=== PATIENT | female | born 1960 | race African-American/Black ===

== ENCOUNTER 2019-02-21 19:32 | Inpatient (IN) | payer OTHER, BC ==
--- NOTE | 2019-02-21 20:23 | PDOC ---
Attending Attestation - Resident Resident Name: Annette Matamoros - ED Attending Attestation I have performed the following: I have examined & evaluated the patient, The case was reviewed & discussed with the resident, I agree w/resident's findings & plan - HPI HPI: 02/21/19 21:15 see resident hpi - Physicial Exam PE: 02/21/19 21:15 agree with resident exam - Medical Decision Making 02/21/19 21:15 58 yo female with abd pain, vomiting and diarrhea plan for CT, IVF and likely admit due to co morbidities including tracheostomy status
[2019-02-21] MEDS ORDERED: ONDANSETRON *ODT* 4 MG TABLET SL ONE (20:35)
[2019-02-21] MEDS ORDERED: SODIUM CHLORIDE 0.9% 500 ML INFUS.BAG IV ONE (20:36)
[2019-02-21] MEDS ORDERED: FAMOTIDINE 20 MG/50 ML IVPB 20 MG/50 ML MG IVPB ONE ×2 (20:36→20:50)
--- NOTE | 2019-02-21 20:45 | PDOC ---
History of Present Illness - General Chief Complaint: Pain, Acute Stated Complaint: ABDOMINAL PAIN Time Seen by Provider: 02/21/19 20:19 - History of Present Illness Initial Comments: Deena Elizabeth is a 58yo woman with a PMH of HTN, HLD, NIDDM, s/p trach (reason unknown), ventral hernia who presents with 3 days of frequent vomiting, watery diarrhea, PO intolerance, and abdominal pain. Ms Elizabeth is unable to provide many details due to her trach, and her niece is at bedside to provide additional details. According to the eileenkarmen, who lives with Ms Elizabeth and is her primary caregiver, the pt first started having symptoms 2 or 3 days ago. The vomiting and diarrhea have worsened over the past few days, and the niece came home from work today to find the patient persistently vomiting and retching. Ms Elizabeth indicates that she has been unable to tolerate any food and few liquids over the past 2-3 days; she says that everything comes right back up. She also reports abdominal pain located directly over the site of her ventral hernia. She denies ever having abdominal surgery or a bowel obstruction in the past. She and her niece report that the hernia sometimes goes down in size, but it never goes away completely. Neither has noticed any redness or warmth over the hernia. Niether are aware of any fevers or chills at home. Past History - Past Medical History Allergies/Adverse Reactions: Allergies Allergy/AdvReac Type Severity Reaction Status Date / Time Penicillins Allergy Verified 02/21/19 20:11 Home Medications: Ambulatory Orders Clonidine HCl [Clonidine HCl ER] 0.1 mg PO BID 02/21/19 Lisinopril [Prinivil -] 40 mg PO DAILY 02/21/19 Metformin HCl [Metformin HCl ER] 500 mg PO AM 02/21/19 Metoclopramide HCl [Reglan -] 10 mg PO TID 02/21/19 Rosuvastatin Calcium [Crestor] 20 mg PO HS 02/21/19 COPD: No Diabetes: Yes HTN: Yes Hypercholesterolemia: Yes Other medical history: permanent trach collar - Suicide/Smoking/Psychosocial Hx Smoking History: Unknown if ever smoked Hx Alcohol Use: No Drug/Substance Use Hx: No Review of Systems - Review of Systems Comments:: Could not evaluate; pt minimally verbal due to trach *Physical Exam - Vital Signs Last Vital Signs Temp Pulse Resp BP Pulse Ox 98 F 93 H 20 135/70 94 L 02/21/19 19:55 02/21/19 19:55 02/21/19 19:55 02/21/19 19:55 02/21/19 19:55 - Physical Exam Comments: General: Morbidly obese, uncomfortable but in no acute distress HEENT: Atraumatic, PERRL, EOMI, MMM, trach patent and in place Cards: RRR, no murmur appreciated Pulm: Comfortable on room air, clear to auscultation bilaterally Abd: Soft, does not appear distended. Large ventral hernia to the right of midline; TTP over hernia. No erythema, warmth overlying hernia. Soft but not reducible Ext: Atraumatic. 1+ LE edema. Moves all extremities Skin: Normal color, no rashes or lesions Neuro: A&Ox3, CN grossly intact, motor/sensory grossly intact and symmetric Psych: Mood appropriate to situation ED Treatment Course - LABORATORY CBC & Chemistry Diagram: 02/21/19 21:30 02/21/19 21:30 - RADIOLOGY Radiology Studies Ordered: Category Date Time Status CHEST X-RAY PORTABLE* [RAD] Stat Radiology 02/21/19 20:35 Ordered Medical Decision Making - Medical Decision Making 02/21/19 20:36 Deena Elizabeth is a 58yo woman with a PMH of HTN, HLD, NIDDM, s/p trach (reason unknown), ventral hernia who presents with 3 days of frequent vomiting, watery diarrhea, PO intolerance, and abdominal pain located at her ventral hernia. - Vomiting, diarrhea suggestive of gastroenteritis (viral v bacterial, possibly food poisoning). Less likely SBO as hernia is soft but due to body habitus cannot fully evaluate. Cannot localize abdominal pain; Ddx also includes cholecystitis, pancreatitis, appendicitis, or diverticulitis though less likely - CBC, CMP, lipase, coags, T&S - CT abd/pelvis with contrast - Zofran, famotidine, IVF 02/21/19 22:04 - IV acetaminophen ordered for abdominal pain - Pt signed out to Dr Hagen for the remainder of her ED care. Discussed with Dr Hagen and Dr Arnaud Matamoros PGY2 *DC/Admit/Observation/Transfer Diagnosis at time of Disposition: Vomiting and diarrhea - Referrals Referrals: Светлана Valadez [Primary Care Provider] - - Patient Instructions - Post Discharge Activity
[2019-02-21] MEDS ORDERED: ONDANSETRON *ODT* 4 MG TABLET ONE (20:50)
[2019-02-21 21:46] LABS: BASO % 0.3 % (0-2.0); EOS % 1.2 % (0-4.5); HEMATOCRIT 42.5 % (32.4-45.2); HEMOGLOBIN 13.8 GM/dL (10.7-15.3); LYMPH % 11.5 % (8-40); MCH 27.2 pg (25.7-33.7); MCHC 32.5 g/dl (32.0-36.0); MEAN CELL VOLUME 83.6 fl (80-96); MEAN PLT VOLUME 8.6 fl (7.5-11.1); PLATELET COUNT 239 K/MM3 (134-434); RBC 5.08 M/mm3 (3.60-5.2); RDW 14.9 % (11.6-15.6); WHITE BLOOD COUNT 9.4 K/mm3 (4.0-10.0)
[2019-02-21] MEDS ORDERED: ACETAMINOPHEN 1000 MG/100 ML VIAL (NON FORMULARY) IVPB ONE (21:53)
[2019-02-21 22:01] LABS: MAGNESIUM 2.1 mg/dL (1.8-2.4)
[2019-02-21 22:06] LABS: ALBUMIN 3.8 g/dl (3.4-5.0); BILIRUBIN,TOTAL 0.4 mg/dL (0.2-1); CALCIUM 9.6 mg/dL (8.5-10.1); CREATININE 1.5 mg/dL (0.55-1.3); PHOSPHOROUS 3.1 mg/dL (2.5-4.9); POTASSIUM 3.6 mmol/L (3.5-5.1); TOT PROT 8.3 g/dl (6.4-8.2)
[2019-02-21 22:20] LABS: INR 0.99 (0.83-1.09); PROTHROMBIN TIME (PATIENT) 11.7 SEC (9.7-13.0)
[2019-02-21] MEDS ORDERED: ACETAMINOPHEN INJECTION 100 ML IVPB ONE (22:21)
--- NOTE | 2019-02-22 01:05 | PDOC ---
*Physical Exam - Vital Signs Last Vital Signs Temp Pulse Resp BP Pulse Ox 98 F 93 H 20 135/70 94 L 02/21/19 19:55 02/21/19 19:55 02/21/19 19:55 02/21/19 19:55 02/21/19 19:55 ED Treatment Course - LABORATORY CBC & Chemistry Diagram: 02/21/19 21:30 02/21/19 21:30 - ADDITIONAL ORDERS Additional order review: Laboratory Results 02/21/19 02/21/19 02/21/19 21:30 21:30 21:30 PT with INR 11.70 INR 0.99 PTT (Actin FS) 29.0 Sodium Potassium Chloride Carbon Dioxide Anion Gap BUN Creatinine Est GFR (CKD-EPI)AfAm Est GFR (CKD-EPI)NonAf Random Glucose Calcium Phosphorus Magnesium 2.1 Total Bilirubin AST ALT Alkaline Phosphatase Total Protein Albumin Lipase 59 L Blood Type B POSITIVE Antibody Screen Negative 02/21/19 21:30 PT with INR INR PTT (Actin FS) Sodium 142 Potassium 3.6 Chloride 104 Carbon Dioxide 28 Anion Gap 10 BUN 31.0 H Creatinine 1.5 H Est GFR (CKD-EPI)AfAm 44.36 Est GFR (CKD-EPI)NonAf 38.27 Random Glucose 158 H Calcium 9.6 Phosphorus 3.1 Magnesium Total Bilirubin 0.4 AST 25 ALT 22 Alkaline Phosphatase 98 Total Protein 8.3 H Albumin 3.8 Lipase Blood Type Antibody Screen 02/21/19 21:30 RBC 5.08 MCV 83.6 MCHC 32.5 RDW 14.9 MPV 8.6 Neutrophils % 82.0 Lymphocytes % 11.5 Monocytes % 5.0 Eosinophils % 1.2 Basophils % 0.3 - RADIOLOGY Radiology Studies Ordered: Category Date Time Status ABDOMEN & PELVIS CT W/O CONTR [CT] Stat CT Scan 02/22/19 00:01 Taken - Medications Given in the ED: ED Medications Discontinued Medications Generic Name Dose Route Start Last Admin Trade Name Freq PRN Reason Stop Dose Admin Acetaminophen 1,000 mg 02/21/19 21:53 02/21/19 22:32 Ofirmev Injection - IVPB 02/21/19 21:54 1,000 mg ONCE ONE Administration Famotidine/Sodium Chloride 20 mg in 50 mls @ 100 mls/hr 02/21/19 20:36 21:40 Pepcid 20 Mg Premixed Ivpb - IVPB 02/21/19 21:05 100 mls/hr ONCE ONE Administration Ondansetron HCl 4 mg 02/21/19 20:35 02/21/19 21:11 Zofran Odt - SL 02/21/19 20:36 4 mg ONCE ONE Administration Sodium Chloride 1,000 ml 02/21/19 20:36 02/21/19 21:40 Normal Saline - IV 02/21/19 20:37 1,000 ml ONCE ONE Administration *DC/Admit/Observation/Transfer Diagnosis at time of Disposition: Vomiting and diarrhea - Referrals Referrals: Светлана Valadez [Primary Care Provider] - - Patient Instructions - Post Discharge Activity
--- NOTE | 2019-02-22 02:26 | HP ---
CHIEF COMPLAINT: Abdominal pain associated with vomiting and diarrhea for the past 3 days. PCP: Светлана Llanos HISTORY OF PRESENT ILLNESS: The patient is a 58 year old female with PMH significant for HENRIQUE (s/p tracheostomy), HTN, HLD, DM, and ventral hernia. She presented to the ER with complaints of abdominal pain associated with vomiting and diarrhea for the past 3 days. The abdominal pain began over the site of her hernia in her left lower quadrant. It was sudden in onset, rated 10/10 in intensity, sharp in nature, non -radiating, and without any aggravating or relieving factors. The pain is associated with nausea, vomiting, and diarrhea. She had 2 episodes of vomiting 2 days ago, and has been 'dry heaving' since then. She also states that she has not had any food for the past 2 days. She is not sure how many episodes of diarrhea she has had, but states that she has had over 15 episodes overs the past few days. She describes it as brown, watery, with no blood, and not associated with any rectal pain. She has had 3 episodes today. She complains of an associated headache limited to her forehead, which began in the ER. She does not complain of any exposure to sick contacts or associated symptoms of fevers, chills, dizziness, light headedness, shortness of breath, chest pain , palpitations, constipation, dysuria, urinary urgency, or hematuria. ER course was notable for: (1) CT AP Prelim report: Dilated and fluid filled small bowel loops, incarcerated supraumbilical hernia (2) Famotidine, Ofiramev, Zofran (3) Afebrile, WBC 9.4 Recent Travel: None PAST MEDICAL HISTORY: HENRIQUE (s/p tracheostomy), HTN, HLD, DM, and ventral hernia PAST SURGICAL HISTORY: Hernia and goiter removal, unsure when Social History: Smoking: None Alcohol: None Drugs: None Family History: No history of CA, HTN, CAD, CVA Allergies Penicillins Allergy (Verified 02/21/19 20:11) HOME MEDICATIONS: Home Medications Medication Instructions Recorded Clonidine HCl [Clonidine HCl ER] 0.1 mg PO BID 02/21/19 Lisinopril [Prinivil -] 40 mg PO DAILY 02/21/19 Metformin HCl [Metformin HCl ER] 500 mg PO AM 02/21/19 Metoclopramide HCl [Reglan -] 10 mg PO TID 02/21/19 Rosuvastatin Calcium [Crestor] 20 mg PO HS 02/21/19 REVIEW OF SYSTEMS CONSTITUTIONAL: Absent: fever, chills, diaphoresis, generalized weakness, malaise, loss of appetite, weight change HEENT: Absent: rhinorrhea, nasal congestion, throat pain, throat swelling, difficulty swallowing, mouth swelling, ear pain, eye pain, visual changes CARDIOVASCULAR: Absent: chest pain, syncope, palpitations, irregular heart rate, lightheadedness , peripheral edema RESPIRATORY: Absent: cough, shortness of breath, dyspnea with exertion, orthopnea, wheezing, stridor, hemoptysis GASTROINTESTINAL:abdominal pain, nausea, vomiting, diarrhea Absent: abdominal pain, abdominal distension, nausea, vomiting, diarrhea, constipation, melena, hematochezia GENITOURINARY: Absent: dysuria, frequency, urgency, hesitancy, hematuria, flank pain, genital pain MUSCULOSKELETAL: Absent: myalgia, arthralgia, joint swelling, back pain, neck pain SKIN: Absent: rash, itching, pallor HEMATOLOGIC/IMMUNOLOGIC: Absent: easy bleeding, easy bruising, lymphadenopathy, frequent infections ENDOCRINE: Absent: unexplained weight gain, unexplained weight loss, heat intolerance, cold intolerance NEUROLOGIC: Absent: headache, focal weakness or paresthesias, dizziness, unsteady gait, seizure, mental status changes, bladder or bowel incontinence PSYCHIATRIC: Absent: anxiety, depression, suicidal or homicidal ideation, hallucinations. PHYSICAL EXAMINATION Vital Signs - 24 hr 02/21/19 19:55 Temperature 98 F Pulse Rate 93 H Respiratory 20 Rate Blood Pressure 135/70 O2 Sat by Pulse 94 L Oximetry (%) GENERAL: Awake, alert, and fully oriented, complaining of pain HEAD: Normal with no signs of trauma EYES: Pupils equal, round and reactive to light, extraocular movements intact, sclera anicteric, conjunctiva clear. No lid lag. EARS, NOSE, THROAT: Ears normal, nares patent, oropharynx clear without exudates , tracheostomy tube present NECK: Normal range of motion, supple without lymphadenopathy, JVD, or masses. LUNGS: Breath sounds equal, clear to auscultation bilaterally. No wheezes, and no crackles. No accessory muscle use. HEART: Regular rate and rhythm, normal S1 and S2 without murmur, rub or gallop. ABDOMEN: Soft, supraumbilical irreducible hernia present, supraumbilical tenderness, normoavtive bowel sounds MUSCULOSKELETAL: limited rnage of motion in joints due to body habitus UPPER EXTREMITIES: 2+ pulses, warm, well-perfused. No cyanosis. No clubbing. No peripheral edema. LOWER EXTREMITIES: 2+ pulses, warm, well-perfused. No calf tenderness. No peripheral edema. NEUROLOGICAL: Cranial nerves II-XII intact. Normal speech. Normal gait. PSYCHIATRIC: Cooperative. Good eye contact. Appropriate mood and affect. SKIN: Warm, dry, normal turgor, no rashes or lesions noted, normal capillary refill. Laboratory Results - last 24 hr 02/21/19 02/21/19 02/21/19 21:30 21:30 21:30 WBC 9.4 RBC 5.08 Hgb 13.8 Hct 42.5 MCV 83.6 MCH 27.2 MCHC 32.5 RDW 14.9 Plt Count 239 MPV 8.6 Absolute Neuts (auto) 7.7 Neutrophils % 82.0 Lymphocytes % 11.5 Monocytes % 5.0 Eosinophils % 1.2 Basophils % 0.3 Nucleated RBC % 0 PT with INR INR PTT (Actin FS) Sodium 142 Potassium 3.6 Chloride 104 Carbon Dioxide 28 Anion Gap 10 BUN 31.0 H Creatinine 1.5 H Est GFR (CKD-EPI)AfAm 44.36 Est GFR (CKD-EPI)NonAf 38.27 Random Glucose 158 H Calcium 9.6 Phosphorus 3.1 Magnesium 2.1 Total Bilirubin 0.4 AST 25 ALT 22 Alkaline Phosphatase 98 Total Protein 8.3 H Albumin 3.8 Lipase 59 L Blood Type Antibody Screen 02/21/19 02/21/19 21:30 21:30 WBC RBC Hgb Hct MCV MCH MCHC RDW Plt Count MPV Absolute Neuts (auto) Neutrophils % Lymphocytes % Monocytes % Eosinophils % Basophils % Nucleated RBC % PT with INR 11.70 INR 0.99 PTT (Actin FS) 29.0 Sodium Potassium Chloride Carbon Dioxide Anion Gap BUN Creatinine Est GFR (CKD-EPI)AfAm Est GFR (CKD-EPI)NonAf Random Glucose Calcium Phosphorus Magnesium Total Bilirubin AST ALT Alkaline Phosphatase Total Protein Albumin Lipase Blood Type B POSITIVE Antibody Screen Negative ASSESSMENT/PLAN: The patient is a 58 year old female with PMH significant for HENRIQUE (s/p tracheostomy), HTN, HLD, DM, and ventral hernia. She presented to the ER with complaints of abdominal pain associated with vomiting and diarrhea for the past 3 days. Was admitted for suspected incarcerated hernia. # Incarceration of supraumbilical hernia - CT AP Prelim report: Dilated and fluid filled small bowel loops, incarcerated supraumbilical hernia - Morphine IV 2mg Q4H for pain - Zofran iv for nausea - Surgery consulted, case discussed with Dr. Smith - Lactic Acid normal (may be elevated in necrosis due to strangulation) #MARY - BUN:Cr 31/1.5 - Renal USG ordered - N/S administered # FEN - NPO pending surgical consult - N/S administered #DVT PE - SCDs Visit type - Emergency Visit Emergency Visit: Yes ED Registration Date: 02/22/19 Care time: The patient presented to the Emergency Department on the above date and was hospitalized for further evaluation of their emergent condition. - New Patient This patient is new to me today: Yes Date on this admission: 02/26/19 - Critical Care Critical Care patient: No ATTENDING PHYSICIAN STATEMENT I saw and evaluated the patient. I reviewed the resident's note and discussed the case with the resident. I agree with the resident's findings and plan as documented. SUBJECTIVE: OBJECTIVE: ASSESSMENT AND PLAN:
[2019-02-22] MEDS ORDERED: LACTATED RINGERS SOLUTION 1,000 ML IV SCH (02:30)
[2019-02-22] MEDS ORDERED: ACETAMINOPHEN 1000 MG/100 ML VIAL (NON FORMULARY) IVPB PRN (02:36)
[2019-02-22] MEDS ORDERED: ACETAMINOPHEN INJECTION 100 ML IVPB ONE (02:44)
--- NOTE | 2019-02-22 03:09 | PN ---
Teaching Attending Note Name of Resident: Maico Arnett ATTENDING PHYSICIAN STATEMENT I saw and evaluated the patient. Chart, data, imaging reviewed. I reviewed the resident's note and discussed the case with the resident. I agree with the resident's findings and plan as documented. SUBJECTIVE: 58 year old female with PMH significant for HENRIQUE (s/p tracheostomy), HTN, HLD, DM , and ventral hernia s/p surgery - does not remember when surgery was. C/o 3 days of diarrhea up to 15 episodes, brownish, watery stools. some abdominal pain around ventral hernia site, and nausea. Denied significant vomiting. No sick contacts or travel. OBJECTIVE: Last Vital Signs Temp Pulse Resp BP Pulse Ox 98.2 F 93 H 20 104/63 96 02/22/19 02:30 02/22/19 02:30 02/22/19 02:30 02/22/19 02:30 02/22/19 02:30 general -nad, appears uncomfortable, morbidly obese heent -at, nc cv-s1+s2+rrr chest- clear b/l abd -ventral hernia right half of abdomen, Abnormal Lab Results 02/21/19 02/21/19 21:30 21:30 BUN 31.0 H Creatinine 1.5 H Random Glucose 158 H Total Protein 8.3 H [address] of abd/pelvis - supraumbilical hernia, - contains knuckle of transverse colon , obstructive pattern with dilation of small bowel ASSESSMENT AND PLAN: SBO from ventral hernia -admit to med/surg -npo -loya control-morphine IV -correct electrolyte abnormalities -IV fluid hydration -zofran iv for nausea -surgery consult -SCDs - dvt ppx
[2019-02-22] MEDS ORDERED: MORPHINE SULFATE 2 MG/ML VIAL IVPUSH PRN (03:25)
[2019-02-22] MEDS: INSULIN SLIDING SCALE (NOVOLOG) 1 VIAL SQ SCH ×3 (06:27→18:38)
[2019-02-22] MEDS ORDERED: MORPHINE SULFATE 2 MG/ML VIAL ONE (06:59)
[2019-02-22 07:12] LABS: PROTHROMBIN TIME (PATIENT) 11.8 SEC (9.7-13.0)
[2019-02-22 07:13] LABS: ACTIVATED PTT 33.6 SECONDS (25.2-36.5); BASO % 0.3 % (0-2.0); EOS % 1.5 % (0-4.5); HEMATOCRIT 39.8 % (32.4-45.2); LYMPH % 11.9 % (8-40); MCH 27.6 pg (25.7-33.7); MCHC 32.6 g/dl (32.0-36.0); MEAN CELL VOLUME 84.5 fl (80-96); MEAN PLT VOLUME 8.6 fl (7.5-11.1); MONO % 5.6 % (3.8-10.2); NEUT % 80.7 % (42.8-82.8); PLATELET COUNT 208 K/MM3 (134-434); RBC 4.71 M/mm3 (3.60-5.2); RDW 15.1 % (11.6-15.6); WHITE BLOOD COUNT 7.4 K/mm3 (4.0-10.0)
[2019-02-22 07:31] LABS: BLOOD UREA NITROGEN 37.2 mg/dL (7-18); CALCIUM 8.8 mg/dL (8.5-10.1); CREATININE 1.4 mg/dL (0.55-1.3); PHOSPHOROUS 4.3 mg/dL (2.5-4.9); POTASSIUM 3.7 mmol/L (3.5-5.1)
--- NOTE | 2019-02-22 11:39 | PN ---
Teaching Attending Note Name of Resident: Graciela Becerra ATTENDING PHYSICIAN STATEMENT I saw and evaluated the patient. I reviewed the resident's note and discussed the case with the resident. I agree with the resident's findings and plan as documented. SUBJECTIVE:pain improved with pain medication. +belching. denies Cp, SOB, fever , chills, N/V/C/D OBJECTIVE: Last Vital Signs Temp Pulse Resp BP Pulse Ox 98.1 F 95 H 22 H 126/85 98 02/22/19 08:25 02/22/19 08:25 02/22/19 08:25 02/22/19 08:25 02/22/19 08:25 General NAD CV S1 S2 RRR no murmur/rub/gallop Lungs CTA B/L no wheezing/rales/rhonchi Abdomen soft mid-epigastric tenderness with hernia protrusion, +distended no BS appreciated ASSESSMENT AND PLAN: 58yo F wtih PMH HENRIQUE s/p trach, HTN, DM, hypothyroid, dyslipidemia and previous hernia repair presented to the ER wtih abdominal pain and diarrhea x3 days and found to have ventral hernia with transverse colon causing partial bowel obstruction 1. Ventral hernia with partial bowel obstruction- clinically seems improved as controlled with medications. lactic acid normal. will need correction of hernia if unable to be reduced, and likely wont be able to. cont NPO, IVF, pain and nausea control. surgery recommendations 2. MARY- due to dehydration. stable. renal u/s noted. states she having good UOP. avoid nephrotoxic agents 3. non-obstructing nephrolithasis- no hydro seen. pain not likely due to renal stone. will cont with IVF. can start flomax once tolerating diet to aid in passage 4. HENRIQUE s/p trach 5. HTN- controlled. hold oral agents for now. can re-start as needed 6. DM- A1c pending. hold oral agents. cont BGM and iss 7. Hypothyroid- convert to IV while not able to take po 8. DVT ppx- SCD, plan for hep sq once surgery is not planned 9. spoke with daughter present at bedside. all questions answered
--- NOTE | 2019-02-22 12:24 | EKG ---
Test Reason : Blood Pressure : / mmHG Vent. Rate : 092 BPM Atrial Rate : 092 BPM P-R Int : 138 ms QRS Dur : 104 ms QT Int : 388 ms P-R-T Axes : 061 070 059 degrees QTc Int : 479 ms POOR DATA QUALITY, INTERPRETATION MAY BE ADVERSELY AFFECTED NORMAL SINUS RHYTHM NORMAL ECG NO PREVIOUS ECGS AVAILABLE Confirmed by ROSALIA VAIL MD ([id number]) on 02/22/2019 12:23:52 PM Referred By: Confirmed By:ROSALIA VAIL MD
[2019-02-22] MEDS ORDERED: PNEUMOC 13-VAL CONJ-DIP CRM/PF 0.5 ML DISP.SYRIN IM ONE (12:25)
[2019-02-22 12:45] VITALS: BMI 43.9
[2019-02-22] MEDS ORDERED: PNEUMOCOCCAL 23 VACCINE 0.5 ML VIAL IM ONE (13:00)
--- NOTE | 2019-02-22 13:22 | CONSULT ---
- Consultation REQUESTING PROVIDER: CONSULT REQUEST: We have been asked to surgically evaluate this patient for incarcerated hernia. PCP:Dejah Hawkins HISTORY OF PRESENT ILLNESS: The patient is a 58 yo female who a PMHX of HTN, Trach for respiratory failure with a history of sleep apnea. The patient developed vomiting and diarrhea several days ago and then noted abdominal pain. She came to the ER for evaluation and was found to have an incarcerated hernia containing colon with a SBO. She states that she has had the hernia for years and has pain from time to time. Typically it protrudes and on occasion she does have an increase and size and pain to the area. The patient denies any CP, SOB, fever or chills. Pt refused NGT placement. PMHx: HTN, sleep apnea, DM PSHx: c section/ hernia with repair years ago, Trach-7 years ago following a respiratory failure incident Home Medications Medication Instructions Recorded Clonidine HCl [Clonidine HCl ER] 0.1 mg PO BID 02/21/19 Lisinopril [Prinivil -] 40 mg PO DAILY 02/21/19 Metformin HCl [Metformin HCl ER] 500 mg PO BIDAC 02/21/19 Metoclopramide HCl [Reglan -] 10 mg PO TID 02/21/19 Rosuvastatin Calcium [Crestor] 20 mg PO HS 02/21/19 Levothyroxine Sodium [Synthroid] 175 mcg PO ACBK 02/22/19 Allergies Allergy/AdvReac Type Severity Reaction Status Date / Time Penicillins Allergy Verified 02/21/19 20:11 REVIEW OF SYSTEMS: CONSTITUTIONAL: Absent: fever, chills CARDIOVASCULAR: Absent: chest pain, syncope, palpitations RESPIRATORY: Absent: cough, shortness of breath GASTROINTESTINAL: Absent: abdominal pain, abdominal distension, nausea, vomiting, diarrhea GENITOURINARY: Absent: dysuria, hematuria HEMATOLOGIC/IMMUNOLOGIC: Absent: easy bleeding, easy bruising NEUROLOGIC: Absent: headache, seizure PHYSICAL EXAM: GENERAL: Awake, alert, and fully oriented, in no acute distress. NECK: LUNGS: Clear to auscultation bilat anteriorly. HEART: Regular rate and rhythm. ABDOMEN: Soft, large non-reducible, tender supraumbilical hernia. Healed vertical midline scar to mid abdomen. No rebound/guarding to remaining abdomen Vital Signs Temperature 97.8 F 02/22/19 12:00 Pulse Rate 78 02/22/19 12:00 Respiratory Rate 20 02/22/19 12:00 Blood Pressure 141/79 02/22/19 12:00 O2 Sat by Pulse Oximetry (%) 98 02/22/19 08:25 Lab Results WBC 7.4 K/mm3 (4.0-10.0) 02/22/19 06:34 RBC 4.71 M/mm3 (3.60-5.2) 02/22/19 06:34 Hgb 13.0 GM/dL (10.7-15.3) 02/22/19 06:34 Hct 39.8 % (32.4-45.2) 02/22/19 06:34 MCV 84.5 fl (80-96) 02/22/19 06:34 MCHC 32.6 g/dl (32.0-36.0) 02/22/19 06:34 RDW 15.1 % (11.6-15.6) 02/22/19 06:34 Plt Count 208 K/MM3 (134-434) 02/22/19 06:34 Sodium 144 mmol/L (136-145) 02/22/19 06:34 Potassium 3.7 mmol/L (3.5-5.1) 02/22/19 06:34 Chloride 106 mmol/L (98-107) 02/22/19 06:34 Carbon Dioxide 26 mmol/L (21-32) 02/22/19 06:34 Anion Gap 12 MMOL/L (8-16) 02/22/19 06:34 BUN 37.2 mg/dL (7-18) H 02/22/19 06:34 Creatinine 1.4 mg/dL (0.55-1.3) H 02/22/19 06:34 Random Glucose 150 mg/dL (74-106) H 02/22/19 06:34 Calcium 8.8 mg/dL (8.5-10.1) 02/22/19 06:34 Blood Type B POSITIVE 02/21/19 21:30 Antibody Screen Negative 02/21/19 21:30 INR 1.00 (0.83-1.09) 02/22/19 06:34 CT SCAN: supraumbilical ventral hernia containing a portion of the transverse colon. The hernia causes a partial bowel obstruction with distended fluid- filled loops of right colon/small bowel and stomach. US: 6mm nonobstructing left renal stone A/p: 58 yo female with incarcertaed colon in ventral hernia D/w Dr. Smith and will plan for the OR today for emergent incarcerated hernia repair/ex lap. The patient has a chronic hernia which now has become tender, symptomatic. The hernia remains non-reducible with palpable/tender mass on examination. Attempted to place ngt prior to OR but the patient refused. She has agreed to surgery today with Dr. Simth and understands that this an emergent surgery versus elective repair because of the obstructive symptoms/presentation. The pt remains NPO. IV hydration while NPO/ BUN/Cret slightly elevated( unsure of baseline) Insulin sliding scale while NPO/ aye-operative glucose control good. BGM-119 DVT with heparin SQ/post-op.
[2019-02-22] MEDS ORDERED: MIDAZOLAM HCL 2 MG/2 ML SINGLE DOSE VIAL ONE (14:28)
[2019-02-22] MEDS ORDERED: fentaNYL CITRATE 250 MCG/5 ML VIAL ONE (14:29)
[2019-02-22] MEDS ORDERED: PROPOFOL 20 ML ONE (14:29)
[2019-02-22] MEDS ORDERED: SUCCINYLCHOLINE CHLORIDE 200 MG/10 ML SYRINGE ONE (14:29)
[2019-02-22] MEDS ORDERED: ROCURONIUM BROMIDE 50 MG/5 ML SYRINGE ONE (14:29)
--- NOTE | 2019-02-22 15:07 | CONS ---
DATE OF CONSULTATION: 02/22/2019 REASON FOR CONSULTATION: Incarcerated, recurrent ventral hernia; large-bowel obstruction. This is an emergency room consultation. BRIEF HISTORY: This is a 58-year-old female who several years ago had a ventral hernia repair, she believes, with mesh. Recently, she developed abdominal pain with nausea, vomiting, and diarrhea. At that point, her hernia, which had been recurrent and symptomatic, became more painful and stuck. She came in to the [facility] Emergency Room. There, she was noted to have a large, nonreducible hernia. She had a CAT scan of her abdomen and pelvis which showed that the hernia had a loop of transverse colon within it. That was the source of a large-bowel obstruction. There was also backup into the small bowel, and she was noted to have a dilated stomach as well. The patient was admitted to the hospital. She refused nasogastric tube decompression. After multiple attempts, the hernia was unable to be reduced, and request was made for surgical evaluation. PAST MEDICAL HISTORY: Significant for morbid obesity, for sleep apnea, hypertension, and diabetes. PAST SURGICAL HISTORY: Includes a permanent tracheostomy which was placed for her sleep apnea. She also has the ventral hernia as stated in the HPI. HOME MEDICATIONS: Include clonidine, lisinopril, metformin, Reglan, and Crestor. ALLERGIES: PENICILLIN. FAMILY HISTORY: Noncontributory. SOCIAL HISTORY: Negative for alcohol or tobacco. REVIEW OF SYSTEMS: General: Admits to fatigue. Cardiac: Denies chest pain. Respiratory: Admits to a chronic cough. Gastrointestinal: As in HPI. Admits to some diarrhea. Genitourinary: Denies dysuria. Musculoskeletal: Denies joint pain. Psychiatric: Denies anxiety, depression, hearing voices. PHYSICAL EXAMINATION: General: This is a morbidly obese, 58-year-old female in no distress. HEENT: Her head is normocephalic. Neck: She has a tracheostomy that appears permanent. Abdomen: Soft. She has a large hernia that is only partially reducible. There are no overlying skin changes. There is mild tenderness at location. The hernia is directly over a midline scar going above her umbilicus, approximately 6 inches in diameter. Her lower abdomen is soft and nontender. Extremities: Trace edema. LABORATORY DATA: Her white blood cell count is normal. ASSESSMENT: This is a 58-year-old female who presents with abdominal pain, nausea, vomiting, diarrhea; suspect a chronically-incarcerated, recurrent ventral hernia, now developed acute large-bowel obstruction. She has been unable to have this hernia reduced. Her symptoms have not significantly improved, and she is refusing nasogastric tube decompression. At this point, I have offered the patient repair of this hernia, and she is agreeable. Since there is an acutely-incarcerated loop of colon that is likely chronically present, there is a good chance that there will be bacterial translocation. Furthermore, she has an odor of poor hygiene from fat folds. All of this would lead to the possibility of mesh contamination more than I find acceptable. Therefore, we will likely just do a primary repair. It is possible I may also use a dissolvable mesh depending on the anatomy. Patient understands that this repair is unlikely permanent, that she will likely have a recurrence, but that this will solve the acute problem, and in the future, if the hernia recurs, it may not be as symptomatic. Unfortunately, we were unable to reduce this; otherwise, she could have considered a component separation hernia repair with mesh. At this point, patient is agreeable, and we will proceed with surgery. She assumes the risk of recurrence. She assumes the risk of injury to the colon. She may require a partial colectomy with ostomy depending on the condition of her colon. She also understands the risk of bleeding, infection, plus a multitude of medical risks including, but not limited to, cardiac, neurologic, pulmonary, and vascular complications, even . Patient is agreeable for surgery. We will give her a dose of meropenem prophylaxis and move in the direction of surgery. The patient was seen earlier in the day by JOSE C Portillo, and plan was coordinated between us under my direction. Georgie was unable to reduce the hernia, as was I, and the patient refused a nasogastric tube. Also note that the computers are currently unusable because of chronic overlock operator errors, and therefore, I am unable to put in a computer note at this time. DO DOMINIQUE HAYNES/[id number]
--- NOTE | 2019-02-22 15:34 | OP ---
DATE OF OPERATION: 02/22/2019 PREOPERATIVE DIAGNOSIS: Incarcerated complex ventral hernia. POSTOPERATIVE DIAGNOSIS: Incarcerated complex ventral hernia. PROCEDURE: Reduction of complex incarcerated ventral hernia under anesthesia. SURGEON: Jonatan Smith DO WAREHOUSE ASSISTANT: JOSE C Daley ANESTHESIOLOGIST: JESI Diaz (general) BRIEF HISTORY: This is a 58-year-old female who had a chronic incarcerated ventral hernia that became acutely incarcerated, causing a large-bowel obstruction. She presented to the operating room with plans for repair of this hernia as it had been unable to be reduced. The plan was for a primary repair. The patient has a permanent tracheostomy, and the anesthesia team initially intubated her utilizing a pediatric endotracheal tube through the trachea. After successfully doing this , the hernia was inspected, and it was able to be mostly reduced. At this point, while preparing to prep and drape the patient, the anesthesia team noted that the small endotracheal tube was not sufficient to provide enough oxygenation. At this point, the decision was made to wake her up and to have her evaluated by ENT and to cancel the planned hernia repair. The patient then had a large liquid bowel movement on the table. At this point, it was felt that the reduction of the hernia with the aid of anesthesia was successful. She still has a chronic incarceration to it, but I doubt that she is still obstructed of her colon. At this point, we will plan to observe her. If she remains well, we will not proceed with surgery. If, however, she still appears to have signs of obstruction, we will need to have her tracheostomy changed out by ENT, followed by the hernia repair. Further operative details include no blood loss, no drains, no specimen, and disposition to the recovery room. JONATAN SMITH DO [id number] MTDD
[2019-02-22] MEDS: LACTATED RINGERS SOLUTION 1,000 ML IV SCH (16:15)
--- NOTE | 2019-02-22 21:12 | PN ---
Physical Exam: SUBJECTIVE: Patient seen and examined. She reports right side abdominal pain. She denies n/v, SOB, or wheezing. OBJECTIVE: Vital Signs Period Temp Pulse Resp BP Sys/Leggett Pulse Ox Last 24 Hr 97.5 F-98.2 F 77-95 20-22 104-141/63-85 86-99 GENERAL: The patient is awake, alert, and fully oriented, in no acute distress. HEAD: Normal with no signs of trauma. EYES: PERRL, extraocular movements intact, sclera anicteric, conjunctiva clear. No ptosis. ENT: Ears normal, nares patent, moist mucous membranes. NECK: Trachea midline, tracheostomy tube in place, limited range of motion, supple. LUNGS: Breath sounds equal, clear to auscultation bilaterally, no wheezes HEART: Regular rate and rhythm, S1, S2 without murmur, rub or gallop. ABDOMEN: Obese. Generalized tenderness to palpation, especially right side. Large ventral hernia present. No discoloration. hypoactive bowel sounds, no guarding EXTREMITIES: 2+ pulses, warm, well-perfused, no edema. NEUROLOGICAL: Cranial nerves II through XII grossly intact. Normal speech, gait not observed. PSYCH: Normal mood, normal affect. SKIN: Warm, dry, normal turgor, no rashes or lesions noted Laboratory Results - last 24 hr 02/21/19 02/21/19 02/21/19 06:34 21:30 21:30 WBC 9.4 RBC 5.08 Hgb 13.8 Hct 42.5 MCV 83.6 MCH 27.2 MCHC 32.5 RDW 14.9 Plt Count 239 MPV 8.6 Absolute Neuts (auto) 7.7 Neutrophils % 82.0 Lymphocytes % 11.5 Monocytes % 5.0 Eosinophils % 1.2 Basophils % 0.3 Nucleated RBC % 0 PT with INR INR PTT (Actin FS) Sodium 142 Potassium 3.6 Chloride 104 Carbon Dioxide 28 Anion Gap 10 BUN 31.0 H Creatinine 1.5 H Est GFR (CKD-EPI)AfAm 44.36 Est GFR (CKD-EPI)NonAf 38.27 POC Glucometer Random Glucose 158 H Hemoglobin A1c % Lactic Acid Calcium 9.6 Phosphorus 3.1 Magnesium Total Bilirubin 0.4 AST 25 ALT 22 Alkaline Phosphatase 98 Total Protein 8.3 H Albumin 3.8 Lipase Blood Type B POSITIVE Antibody Screen 02/21/19 02/21/19 02/21/19 21:30 21:30 21:30 WBC RBC Hgb Hct MCV MCH MCHC RDW Plt Count MPV Absolute Neuts (auto) Neutrophils % Lymphocytes % Monocytes % Eosinophils % Basophils % Nucleated RBC % PT with INR 11.70 INR 0.99 PTT (Actin FS) 29.0 Sodium Potassium Chloride Carbon Dioxide Anion Gap BUN Creatinine Est GFR (CKD-EPI)AfAm Est GFR (CKD-EPI)NonAf POC Glucometer Random Glucose Hemoglobin A1c % Lactic Acid Calcium Phosphorus Magnesium 2.1 Total Bilirubin AST ALT Alkaline Phosphatase Total Protein Albumin Lipase 59 L Blood Type B POSITIVE Antibody Screen Negative 02/22/19 02/22/19 02/22/19 03:38 06:21 06:34 WBC 7.4 RBC 4.71 Hgb 13.0 Hct 39.8 MCV 84.5 MCH 27.6 MCHC 32.6 RDW 15.1 Plt Count 208 MPV 8.6 Absolute Neuts (auto) 6.0 Neutrophils % 80.7 Lymphocytes % 11.9 Monocytes % 5.6 Eosinophils % 1.5 Basophils % 0.3 Nucleated RBC % 0 PT with INR INR PTT (Actin FS) Sodium Potassium Chloride Carbon Dioxide Anion Gap BUN Creatinine Est GFR (CKD-EPI)AfAm Est GFR (CKD-EPI)NonAf POC Glucometer 142 Random Glucose Hemoglobin A1c % Lactic Acid 0.8 Calcium Phosphorus Magnesium Total Bilirubin AST ALT Alkaline Phosphatase Total Protein Albumin Lipase Blood Type Antibody Screen 02/22/19 02/22/19 02/22/19 06:34 06:34 06:34 WBC RBC Hgb Hct MCV MCH MCHC RDW Plt Count MPV Absolute Neuts (auto) Neutrophils % Lymphocytes % Monocytes % Eosinophils % Basophils % Nucleated RBC % PT with INR 11.80 INR 1.00 PTT (Actin FS) 33.6 Sodium 144 Potassium 3.7 Chloride 106 Carbon Dioxide 26 Anion Gap 12 BUN 37.2 H Creatinine 1.4 H Est GFR (CKD-EPI)AfAm 48.22 Est GFR (CKD-EPI)NonAf 41.60 POC Glucometer Random Glucose 150 H Hemoglobin A1c % 7.6 H Lactic Acid Calcium 8.8 Phosphorus 4.3 Magnesium 2.0 Total Bilirubin AST ALT Alkaline Phosphatase Total Protein Albumin Lipase Blood Type Antibody Screen 02/22/19 02/22/19 02/22/19 12:14 12:33 18:32 WBC RBC Hgb Hct MCV MCH MCHC RDW Plt Count MPV Absolute Neuts (auto) Neutrophils % Lymphocytes % Monocytes % Eosinophils % Basophils % Nucleated RBC % PT with INR INR PTT (Actin FS) Sodium Potassium Chloride Carbon Dioxide Anion Gap BUN Creatinine Est GFR (CKD-EPI)AfAm Est GFR (CKD-EPI)NonAf POC Glucometer 119 133 Random Glucose Hemoglobin A1c % Lactic Acid 0.8 Calcium Phosphorus Magnesium Total Bilirubin AST ALT Alkaline Phosphatase Total Protein Albumin Lipase Blood Type Antibody Screen Active Medications Generic Name Dose Route Start Last Admin Trade Name Freq PRN Reason Stop Dose Admin Acetaminophen 1,000 mg 02/22/19 02:36 02/22/19 02:51 Ofirmev Injection - IVPB 1,000 mg Q6H PRN Administration PAIN OR FEVER Lactated Ringer's 1,000 mls @ 125 mls/hr 02/22/19 15:30 02/22/19 16:15 Lactated Ringers Solution IV 0 mls ASDIR LAKESHA Administration Insulin Aspart 1 vial 02/22/19 06:00 02/22/19 18:38 Novolog Vial Sliding Scale - SQ Not Given Q6HPO [facility] Protocol Levothyroxine Sodium 130 mcg 02/23/19 10:00 Synthroid Injection - IVPUSH DAILY [facility] Morphine Sulfate 2 mg 02/22/19 03:25 02/22/19 07:04 Morphine Sulfate IVPUSH 2 mg Q4H PRN Administration PAIN LEVEL 6-10 ASSESSMENT/PLAN: Ms. Elizabeth is a 58y/o female with HENRIQUE (s/p tracheostomy 7 years ago), HTN, HLD, DM, and ventral hernia. She presented to the ER with complaints of abdominal pain associated with vomiting and diarrhea for the past 3 days. Was admitted for suspected incarcerated hernia. #abdominal pain 2/[address] showed supraumbilical ventral hernia containing transverse colon, causing partial bowel obstruction, with distended fluid filled loops of right colon, small bowel, and stomach, fat containing umbilical hernia also present. Cardiomegaly and pericardial effusion present. -surgery aborted today because pt had permanent metal trach that was not compatible with equipment at hospital. Surgical team was able to reduce hernia; therefore relieving the bowel obstruction. Pt had liquid BM on operating table. Repair may be able to be done electively. -ENT consulted -Morphine IV 2mg Q4H for pain -CBC, CMP -PT #MARY BUN:Cr 31/1.5 -renal U/S- 6mm nonobstructing left renal stone. Possible 4cm right upper pole renal cyst. Recommend out pt not emergent contrast CT or MRI -LR 125mL/hr #DM A1C 7.6 -SSI -BGM #FEN NPO monitor lytes LR 125mL/hr #DVT Prophylaxis SCDs Visit type - Emergency Visit Emergency Visit: Yes ED Registration Date: 02/22/19 Care time: The patient presented to the Emergency Department on the above date and was hospitalized for further evaluation of their emergent condition. - New Patient This patient is new to me today: Yes Date on this admission: 02/22/19 - Critical Care Critical Care patient: No - Discharge Referral Referred to [facility] Med P.C.: No ATTENDING PHYSICIAN STATEMENT I saw and evaluated the patient. I reviewed the resident's note and discussed the case with the resident. I agree with the resident's findings and plan as documented. SUBJECTIVE: OBJECTIVE: ASSESSMENT AND PLAN:
[2019-02-22] MEDS ORDERED: PT OWN MED DRAWER 7, Y5N ONE (22:48)
[2019-02-23] MEDS: INSULIN SLIDING SCALE (NOVOLOG) 1 VIAL SQ SCH ×4 (00:44→17:41)
[2019-02-23 07:08] LABS: BASO % 0.2 % (0-2.0); EOS % 1.6 % (0-4.5); HEMATOCRIT 38.4 % (32.4-45.2); HEMOGLOBIN 12.1 GM/dL (10.7-15.3); LYMPH % 10.6 % (8-40); MCH 27.3 pg (25.7-33.7); MCHC 31.6 g/dl (32.0-36.0); MEAN CELL VOLUME 86.3 fl (80-96); MEAN PLT VOLUME 8.8 fl (7.5-11.1); MONO % 6.5 % (3.8-10.2); NEUT % 81.1 % (42.8-82.8); PLATELET COUNT 169 K/MM3 (134-434); RBC 4.45 M/mm3 (3.60-5.2); RDW 15.5 % (11.6-15.6); WHITE BLOOD COUNT 7.4 K/mm3 (4.0-10.0)
[2019-02-23 07:25] LABS: ALBUMIN 3.1 g/dl (3.4-5.0); BILIRUBIN,TOTAL 0.2 mg/dL (0.2-1); BLOOD UREA NITROGEN 36.8 mg/dL (7-18); CALCIUM 8.3 mg/dL (8.5-10.1); CREATININE 1.1 mg/dL (0.55-1.3); POTASSIUM 4.3 mmol/L (3.5-5.1); TOT PROT 6.9 g/dl (6.4-8.2)
--- NOTE | 2019-02-23 08:44 | PN ---
Progress Note (short form) - Note Progress Note: Anesthesia POD#1 S/P EUA and Hernia reduction under GA VSS,no N/V,no pain. No other complications seen. Liliam Keith MD.
--- NOTE | 2019-02-23 09:00 | PN ---
Progress Note (short form) - Note Progress Note: 58yo F h/o incarcerated hernia with SBO, pt seen and examined at bedside. Pt had aborted hernia repair yesterday after desaturating with airway difficulties with pts trach. Pt was able to have her hernia reduced in the OR and had a BM yesterday. Today pt's hernia is back but she states that is less sore than yesterday. Pt denies any n/v. Pt denies BM since yesterday or flatus. Last Vital Signs Temp Pulse Resp BP Pulse Ox 97.6 F 76 20 112/76 94 L 02/23/19 06:58 02/23/19 06:58 02/23/19 06:58 02/23/19 06:58 02/22/19 21:00 CBC, BMP 02/23/19 05:52 02/23/19 05:52 PE: Gen: A&O x3 Resp: breathing comfortably, trach in place Abd: soft, large ventral hernia present, hernia mildly tender unable to reduce at bedside. Problem List - Problems (1) Incarcerated ventral hernia Assessment/Plan: Plan -follow up abd x-ray, will consider try on clears later today -serial abd exams -GI ppx -DVT ppx -if pt has to go to OR again will need ENT for possible trach exchange, reached out to Dr. Regalado (ENT) who is aware of pt. Code(s): K43.6 - OTHER AND UNSP VENTRAL HERNIA WITH OBSTRUCTION, W/O GANGRENE
[2019-02-23] MEDS ORDERED: PT OWN MED DRAWER 7, Y5N ONE (09:46)
[2019-02-23] MEDS: LEVOTHYROXINE SODIUM 100 MCG VIAL IVPUSH SCH (09:53)
[2019-02-23] MEDS ORDERED: ALBUTEROL SO4 2.5/IPRATROPIUM 0.5 INH SOL 3 ML VIAL.NEB. NEB ONE (11:45)
--- NOTE | 2019-02-23 11:45 | PN ---
Physical Exam: SUBJECTIVE: Patient seen and examined. She reports abdominal soreness, shortness of breath, and wheezing. She denies n/v/d and chest pain. OBJECTIVE: The hernia that was reduced returned overnight. Vital Signs Period Temp Pulse Resp BP Sys/Leggett Pulse Ox Last 24 Hr 97. F-98.7 F 72-90 15-20 108-141/66-79 86-100 GENERAL: The patient is awake, alert, and fully oriented, in no acute distress. HEAD: Normal with no signs of trauma. EYES: PERRL, extraocular movements intact, sclera anicteric, conjunctiva clear. No ptosis. ENT: Ears normal, nares patent, moist mucous membranes. NECK: Trachea midline, tracheostomy tube in place, limited range of motion, supple. LUNGS: Breath sounds equal, clear to auscultation bilaterally, no wheezes HEART: Regular rate and rhythm, S1, S2 without murmur, rub or gallop. ABDOMEN: Obese. Generalized tenderness to palpation, especially right side. Large ventral hernia present. No discoloration. hypoactive bowel sounds, no guarding EXTREMITIES: 2+ pulses, warm, well-perfused, no edema. NEUROLOGICAL: Cranial nerves II through XII grossly intact. Normal speech, gait not observed. PSYCH: Normal mood, normal affect. SKIN: Warm, dry, normal turgor, no rashes or lesions noted Laboratory Results - last 24 hr 02/22/19 02/22/19 02/22/19 06:34 12:14 12:33 WBC RBC Hgb Hct MCV MCH MCHC RDW Plt Count MPV Absolute Neuts (auto) Neutrophils % Lymphocytes % Monocytes % Eosinophils % Basophils % Nucleated RBC % Sodium Potassium Chloride Carbon Dioxide Anion Gap BUN Creatinine Est GFR (CKD-EPI)AfAm Est GFR (CKD-EPI)NonAf POC Glucometer 119 Random Glucose Hemoglobin A1c % 7.6 H Lactic Acid 0.8 Calcium Total Bilirubin AST ALT Alkaline Phosphatase Total Protein Albumin 02/22/19 02/22/19 02/23/19 18:32 20:41 00:41 WBC RBC Hgb Hct MCV MCH MCHC RDW Plt Count MPV Absolute Neuts (auto) Neutrophils % Lymphocytes % Monocytes % Eosinophils % Basophils % Nucleated RBC % Sodium Potassium Chloride Carbon Dioxide Anion Gap BUN Creatinine Est GFR (CKD-EPI)AfAm Est GFR (CKD-EPI)NonAf POC Glucometer 133 135 136 Random Glucose Hemoglobin A1c % Lactic Acid Calcium Total Bilirubin AST ALT Alkaline Phosphatase Total Protein Albumin 02/23/19 02/23/19 02/23/19 05:49 05:52 05:52 WBC 7.4 RBC 4.45 Hgb 12.1 Hct 38.4 MCV 86.3 MCH 27.3 MCHC 31.6 L RDW 15.5 Plt Count 169 MPV 8.8 Absolute Neuts (auto) 6.0 Neutrophils % 81.1 Lymphocytes % 10.6 Monocytes % 6.5 Eosinophils % 1.6 Basophils % 0.2 Nucleated RBC % 0 Sodium 146 H Potassium 4.3 Chloride 109 H Carbon Dioxide 27 Anion Gap 10 BUN 36.8 H Creatinine 1.1 Est GFR (CKD-EPI)AfAm 64.54 Est GFR (CKD-EPI)NonAf 55.69 POC Glucometer 123 Random Glucose 125 H Hemoglobin A1c % Lactic Acid Calcium 8.3 L Total Bilirubin 0.2 AST 21 ALT 23 Alkaline Phosphatase 84 Total Protein 6.9 Albumin 3.1 L Active Medications Generic Name Dose Route Start Last Admin Trade Name Freq PRN Reason Stop Dose Admin Acetaminophen 1,000 mg 02/22/19 02:36 02/22/19 02:51 Ofirmev Injection - IVPB 1,000 mg Q6H PRN Administration PAIN OR FEVER Albuterol/Ipratropium 1 amp 02/23/19 11:20 Duoneb - NEB 02/23/19 11:21 ONCE ONE Lactated Ringer's 1,000 mls @ 125 mls/hr 02/22/19 15:30 02/22/19 16:15 Lactated Ringers Solution IV 0 mls ASDIR LAKESHA Administration Insulin Aspart 1 vial 02/22/19 06:00 02/23/19 06:15 Novolog Vial Sliding Scale - SQ Not Given Q6HPO [facility] Protocol Levothyroxine Sodium 130 mcg 02/23/19 10:00 02/23/19 09:53 Synthroid Injection - IVPUSH 130 mcg DAILY LAKESHA Administration Morphine Sulfate 2 mg 02/22/19 03:25 02/22/19 07:04 Morphine Sulfate IVPUSH 2 mg Q4H PRN Administration PAIN LEVEL 6-10 Nystatin 1 applic 02/23/19 10:00 Mycostatin Ointment - TP BID [facility] ASSESSMENT/PLAN: Ms. Elizabeth is a 58y/o female with HENRIQUE (s/p tracheostomy 7 years ago), HTN, HLD, DM, and ventral hernia. She presented to the ER with complaints of abdominal pain associated with vomiting and diarrhea for 3 days. Was admitted for suspected incarcerated hernia. #abdominal pain 2/2 incarcerated supraumbilical hernia Overnight pt's reduced hernia returned. She has been having loose/watery stools intermittently since procedure yesterday. Her diet was advanced to clear liquids and pt appears to be tolerating it well. She may be able to have hernia repair done electively. Will monitor overnight. -Upon presentation, CT showed supraumbilical ventral hernia containing transverse colon, causing partial bowel obstruction, with distended fluid filled loops of right colon, small bowel, and stomach, fat containing umbilical hernia also present. Cardiomegaly and pericardial effusion present. -surgery aborted on 02/22/19 because pt had permanent metal trach that was not compatible with equipment at hospital. Surgical team was able to reduce hernia; therefore relieving the bowel obstruction. Pt had liquid BM on operating table. -ENT is aware of case and may be needed if surgery is done -Morphine IV 2mg Q4H for pain -CBC, CMP -physical therapy #MARY, pre-renal, resolved Cr 1.1 -renal U/S- 6mm nonobstructing left renal stone. Possible 4cm right upper pole renal cyst. Recommend out pt not emergent contrast CT or MRI -LR 125mL/hr #nephrolithiasis -start Flomax after pt tolerates diet #HENRIQUE s/p trach 7 years ago. #DM A1C 7.6 -SSI -BGM #HTN not hypertensive currently, holding PO meds -monitor and push meds IV if needed #hypothyroidism -IV levothyroxine until pt is able to tolerate PO meds #FEN NPO monitor lytes LR 125mL/hr #DVT Prophylaxis SCDs Visit type - Emergency Visit Emergency Visit: Yes ED Registration Date: 02/22/19 Care time: The patient presented to the Emergency Department on the above date and was hospitalized for further evaluation of their emergent condition. - New Patient This patient is new to me today: No - Critical Care Critical Care patient: No - Discharge Referral Referred to [facility] Med P.C.: No ATTENDING PHYSICIAN STATEMENT I saw and evaluated the patient. I reviewed the resident's note and discussed the case with the resident. I agree with the resident's findings and plan as documented. SUBJECTIVE: OBJECTIVE: ASSESSMENT AND PLAN:
--- NOTE | 2019-02-23 11:53 | PN ---
Teaching Attending Note Name of Resident: Graciela Becerra ATTENDING PHYSICIAN STATEMENT I saw and evaluated the patient. I reviewed the resident's note and discussed the case with the resident. I agree with the resident's findings and plan as documented. SUBJECTIVE:c/o abdominal pain. states hernia popped out last night. denies CP, SOB, fever, chills, N/V. had 1 bm since yesterday OBJECTIVE: Last Vital Signs Temp Pulse Resp BP Pulse Ox 98.0 F 72 20 108/67 98 02/23/19 10:00 02/23/19 10:00 02/23/19 10:00 02/23/19 10:00 02/23/19 10:00 General NAD CV S1 S2 RRR no murmur/rub/gallop Lungs CTA B/L no wheezing/rales/rhonchi Abdomen soft mid-epigastric tenderness with hernia protrusion, slight distention near hernia. hypoactive BS. ASSESSMENT AND PLAN: 58yo F wtih PMH HENRIQUE s/p trach, HTN, DM, hypothyroid, dyslipidemia and previous hernia repair presented to the ER wtih abdominal pain and diarrhea x3 days and found to have ventral hernia with transverse colon causing partial bowel obstruction 1. Ventral hernia with partial bowel obstruction- went to OR yesterday however was unable to adequately ventilate patient and case cancelled. was able to reduce hernia while in the OR but appears hernia came out last night in the evening. appears that SBO might have been resolved. will check AXR. maintain NPO with IVF and pain control. possible advance of diet pending on XR, surgery on board. if needs to go to OR will need trach change. ENT is aware 2. MARY- due to dehydration. resolved. cont IVF while NPO. avoid nephrotoxic agents 3. non-obstructing nephrolithasis- no hydro seen. pain not likely due to renal stone. will cont with IVF. can start flomax once tolerating diet to aid in passage 4. HENRIQUE s/p trach 5. HTN- controlled. hold oral agents for now. can re-start as needed 6. DM- A1c pending. hold oral agents. cont BGM and iss 7. Hypothyroid- convert to IV while not able to take po 8. DVT ppx- SCD, plan for hep sq once surgery is not planned
[2019-02-23] MEDS: NYSTATIN 100000 UNIT/GM TOPICAL OINTMENT 15 GM TUBE TP SCH ×2 (12:17→23:00)
--- NOTE | 2019-02-23 17:09 | PN ---
Progress Note (short form) - Note Progress Note: surgery pt seen and examined. feels well. bm and flatus abd- soft, mostly reducible ventral hernia. Plan- trial of liquids. poss d/c in am. can consider elective repair with component separation after trach change. [phone]
[2019-02-23] MEDS: LACTATED RINGERS SOLUTION 1,000 ML IV SCH (17:36)
[2019-02-24] MEDS: INSULIN SLIDING SCALE (NOVOLOG) 1 VIAL SQ SCH ×4 (00:14→18:22)
--- NOTE | 2019-02-24 09:21 | PN ---
Progress Note (short form) - Note Progress Note: surgery pt seen and examined. refused to let me evaluate hernia this morning. has nausea and diarrhea plan- unclear if still plbo from hernia or seperate enteritis. cont clears. can discharge when tolerating liquids better. if unable to tolerate liquids may need to revisit surgery and trach change. pt is non toxic without signs of compromise.
--- NOTE | 2019-02-24 10:47 | PN ---
Progress Note (short form) - Note Progress Note: c/o abdominal pain, not tolerating liquids due to the pain. continues to have profuse diarrhea. denies CP, SOB, fever, chills, N/V/C Current Medications Generic Name Dose Route Start Last Admin Trade Name Yamel PRN Reason Stop Dose Admin Acetaminophen 1,000 mg 02/22/19 02:36 02/22/19 02:51 Ofirmev Injection - IVPB 1,000 mg Q6H PRN Administration PAIN OR FEVER Lactated Ringer's 1,000 mls @ 125 mls/hr 02/22/19 15:30 02/23/19 17:36 Lactated Ringers Solution IV 125 mls/hr ASDIR LAKESHA Administration Insulin Aspart 1 vial 02/22/19 06:00 02/24/19 07:14 Novolog Vial Sliding Scale - SQ Not Given Q6HPO LAKESHA Protocol Levothyroxine Sodium 130 mcg 02/23/19 10:00 02/23/19 09:53 Synthroid Injection - IVPUSH 130 mcg DAILY LAKESHA Administration Morphine Sulfate 2 mg 02/22/19 03:25 02/22/19 07:04 Morphine Sulfate IVPUSH 2 mg Q4H PRN Administration PAIN LEVEL 6-10 Nystatin 1 applic 02/23/19 10:00 02/23/19 23:00 Mycostatin Ointment - TP 1 applic BID LAKESHA Administration Last Vital Signs Temp Pulse Resp BP Pulse Ox 97.6 F 73 18 123/89 98 02/24/19 09:40 02/24/19 09:40 02/24/19 09:40 02/24/19 09:40 02/23/19 10:00 General NAD CV S1 S2 RRR no murmur/rub/gallop Lungs CTA B/L no wheezing/rales/rhonchi Abdomen soft mid-epigastric tenderness with hernia protrusion, slight distention near hernia. hypoactive BS. CBCD WBC 7.4 K/mm3 (4.0-10.0) 02/23/19 05:52 RBC 4.45 M/mm3 (3.60-5.2) 02/23/19 05:52 Hgb 12.1 GM/dL (10.7-15.3) 02/23/19 05:52 Hct 38.4 % (32.4-45.2) 02/23/19 05:52 MCV 86.3 fl (80-96) 02/23/19 05:52 MCHC 31.6 g/dl (32.0-36.0) L 02/23/19 05:52 RDW 15.5 % (11.6-15.6) 02/23/19 05:52 Plt Count 169 K/MM3 (134-434) 02/23/19 05:52 MPV 8.8 fl (7.5-11.1) 02/23/19 05:52 CMP Sodium 146 mmol/L (136-145) H 02/23/19 05:52 Potassium 4.3 mmol/L (3.5-5.1) 02/23/19 05:52 Chloride 109 mmol/L (98-107) H 02/23/19 05:52 Carbon Dioxide 27 mmol/L (21-32) 02/23/19 05:52 Anion Gap 10 MMOL/L (8-16) 02/23/19 05:52 BUN 36.8 mg/dL (7-18) H 02/23/19 05:52 Creatinine 1.1 mg/dL (0.55-1.3) 02/23/19 05:52 Calcium 8.3 mg/dL (8.5-10.1) L 02/23/19 05:52 Total Bilirubin 0.2 mg/dL (0.2-1) 02/23/19 05:52 AST 21 U/L (15-37) 02/23/19 05:52 ALT 23 U/L (13-61) 02/23/19 05:52 Alkaline Phosphatase 84 U/L (45-117) 02/23/19 05:52 Total Protein 6.9 g/dl (6.4-8.2) 02/23/19 05:52 Albumin 3.1 g/dl (3.4-5.0) L 02/23/19 05:52 ASSESSMENT AND PLAN: 58yo F wtih PMH HENRIQUE s/p trach, HTN, DM, hypothyroid, dyslipidemia and previous hernia repair presented to the ER wtih abdominal pain and diarrhea x3 days and found to have ventral hernia with transverse colon causing partial bowel obstruction 1. Ventral hernia with partial bowel obstruction-unable to surgically reduce hernia due to difficulties with trach. possible SBO reversal but not tolerating diet. will repeat AXR to evaluate SBO. will need hernia repair but likely not urgent at this time. cont with clear liquids and IVF until tolerating diet. surgery on board. if needs to go to OR will need trach change. ENT is aware 2. diarrhea- due to risk factors will check cdiff. start banatrol and loperamide if negative 3. MARY- due to dehydration. resolved. resolved. avoid nephrotoxic agents 4. non-obstructing nephrolithasis- no hydro seen. pain not likely due to renal stone. will cont with IVF. can start flomax once tolerating diet to aid in passage 5. HENRIQUE s/p trach 6. HTN- controlled. hold oral agents for now. can re-start as needed 7. DM- A1c pending. hold oral agents. cont BGM and iss 8. Hypothyroid- convert to IV while not able to take po 9. DVT ppx- start hep sq Visit type - Emergency Visit Emergency Visit: Yes ED Registration Date: 02/22/19 Care time: The patient presented to the Emergency Department on the above date and was hospitalized for further evaluation of their emergent condition. - New Patient This patient is new to me today: No - Critical Care Critical Care patient: No - Discharge Referral Referred to [facility] Med P.C.: No
[2019-02-24] MEDS ORDERED: PT OWN MED DRAWER 7, Y5N ONE ×2 (10:54→14:40)
[2019-02-24] MEDS: LACTATED RINGERS SOLUTION 1,000 ML IV SCH (11:36)
[2019-02-24] MEDS: NYSTATIN 100000 UNIT/GM TOPICAL OINTMENT 15 GM TUBE TP SCH ×2 (11:37→22:49)
[2019-02-24] MEDS ORDERED: LOPERAMIDE HCL 2 MG CAPSULE PO PRN (14:38)
[2019-02-24] MEDS: HEPARIN NA (PORCINE) 5,000 UNITS/ML 1ML VIAL SQ SCH ×2 (14:54→22:49)
[2019-02-24] MEDS: LEVOTHYROXINE SODIUM 100 MCG VIAL IVPUSH SCH (14:55)
[2019-02-25] MEDS: INSULIN SLIDING SCALE (NOVOLOG) 1 VIAL SQ SCH ×5 (00:32→19:05)
[2019-02-25] MEDS: LACTATED RINGERS SOLUTION 1,000 ML IV SCH ×2 (04:17→13:58)
[2019-02-25] MEDS: HEPARIN NA (PORCINE) 5,000 UNITS/ML 1ML VIAL SQ SCH ×3 (06:15→22:53)
--- NOTE | 2019-02-25 09:51 | PN ---
Teaching Attending Note Name of Resident: Deejay Franz ATTENDING PHYSICIAN STATEMENT I saw and evaluated the patient. I reviewed the resident's note and discussed the case with the resident. I agree with the resident's findings and plan as documented. SUBJECTIVE:c/o abdominal pain. has diarrhea but less frequent. tolerating clears. c/o generalized weakness. denies CP, SOB, fever, chills, N/V OBJECTIVE: Last Vital Signs Temp Pulse Resp BP Pulse Ox 98.6 F 83 18 164/69 98 02/25/19 09:13 02/25/19 09:13 02/25/19 09:13 02/25/19 09:13 02/24/19 22:00 General NAD ABdomen soft + distended. +ventral hernia hypoactive BS ASSESSMENT AND PLAN: 58yo F wtih PMH HENRIQUE s/p trach, HTN, DM, hypothyroid, dyslipidemia and previous hernia repair presented to the ER wtih abdominal pain and diarrhea x3 days and found to have ventral hernia with transverse colon causing partial bowel obstruction 1. Incarcerated Ventral hernia with partial bowel obstruction- repeated AXR which showing transverse colon in the hernia. unable to reduce. pt is hemodynamically stable. spoke with surgery. plan to place NGT now for decompression. check CT with contrast tomorrow to better assess the area with planned surgery within 24H of that. in the interim trach will need to be exchanged. ENT is aware and knows of pending surgery likely for 02/27. will switch to NPO, IVF and pain and nausea control. 2. diarrhea- improved. Cdff negative. 3. MARY- due to dehydration. resolved. resolved. avoid nephrotoxic agents 4. non-obstructing nephrolithasis- no hydro seen. pain not likely due to renal stone. will cont with IVF. can start flomax once tolerating diet to aid in passage 5. HENRIQUE s/p trach 6. HTN- controlled. hold oral agents for now. can re-start as needed 7. DM- A1c pending. hold oral agents. cont BGM and iss 8. Hypothyroid- convert to IV while not able to take po 9. DVT ppx- hep sq
--- NOTE | 2019-02-25 11:38 | PN ---
Physical Exam: SUBJECTIVE: Patient seen and examined at bedside this morning. Continues to endorse diffuse abdominal pain. Patient endorses trying to drink sips of fluids , and continues to pas diarrhea. Denies subjective fevers, chills, chest pain, palpations, shortness of breath. OBJECTIVE: Vital Signs Period Temp Pulse Resp BP Sys/Leggett Pulse Ox Last 24 Hr 97.1 F-98.6 F 69-89 18-20 101-164/61-91 98-98 GENERAL: The patient is awake, alert, and fully oriented, in no acute distress. HEAD: Normocephalic, atraumatic. EYES: PERRL, extraocular movements intact, sclera anicteric, conjunctiva clear. ENT: Ears normal, nares patent, moist mucous membranes. NECK: Trachea midline, tracheostomy tube in place, supple. LUNGS: Breath sounds equal, clear to auscultation bilaterally, no wheezes HEART: Regular rate and rhythm, S1, S2 without murmur, rub or gallop. ABDOMEN: Obese. Tenderness to light palpation x4 quadrants. Large ventral hernia present. Hypoactive bowel sounds x4 quadrants. EXTREMITIES: 2+ pulses bilaterally, warm, well-perfused. No lower extremity edema. NEUROLOGICAL: Cranial nerves II through XII grossly intact. Normal speech via PMV valve. PSYCH: Normal mood, normal affect. SKIN: Warm, dry. Laboratory Results - last 24 hr 02/24/19 02/24/19 02/24/19 11:35 17:51 21:09 POC Glucometer 121 107 105 02/25/19 02/25/19 00:35 06:08 POC Glucometer 119 103 Active Medications Generic Name Dose Route Start Last Admin Trade Name Yamel PRN Reason Stop Dose Admin Acetaminophen 1,000 mg 02/22/19 02:36 02/22/19 02:51 Ofirmev Injection - IVPB 1,000 mg Q6H PRN Administration PAIN OR FEVER Heparin Sodium (Porcine) 5,000 unit 02/24/19 14:00 02/25/19 06:15 Heparin - SQ 5,000 unit TID LAKESHA Administration Lactated Ringer's 1,000 mls @ 100 mls/hr 02/24/19 10:47 02/25/19 04:17 Lactated Ringers Solution IV 100 mls/hr ASDIR LAKESHA Administration Insulin Aspart 1 vial 02/22/19 06:00 02/25/19 06:12 Novolog Vial Sliding Scale - SQ Not Given Q6HPO [facility] Protocol Levothyroxine Sodium 130 mcg 02/23/19 10:00 02/24/19 14:55 Synthroid Injection - IVPUSH 130 mcg DAILY LAKESHA Administration Loperamide HCl 2 mg 02/24/19 14:38 Imodium - PO Q8H PRN DIARRHEA Morphine Sulfate 2 mg 02/22/19 03:25 02/22/19 07:04 Morphine Sulfate IVPUSH 2 mg Q4H PRN Administration PAIN LEVEL 6-10 Nystatin 1 applic 02/23/19 10:00 02/24/19 22:49 Mycostatin Ointment - TP Not Given BID [facility] ASSESSMENT/PLAN: Patient is a 58 year old female with history of obstructive sleep apnea s/p tracheostomy, hypertension, hyperlipidemia, diabetes mellitus, admitted for small bowel obstruction secondary to large ventral hernia. Abdominal pain secondary to incarcerated supraumbilical hernia -CT abdomen, pelvis at admission reveals supraumbilical ventral hernia containing transverse colon, causing partial bowel obstruction, with distended fluid filled loops of right colon, small bowel, and stomach, fat containing umbilical hernia also present. -General surgery recommendations (Dr. Clark) appreciated. Likely for surgical intervention on Tuesday. -Place NG tube; low wall intermittent suction. NPO -Repeat CT abdomen pelvis with contrast tomorrow. -ENT evaluation (Dr. Andrews) appreciated. Tracheostomy replaced for ventilator compatibility. -Morphine IV 2mg Q4H for pain MARY; pre-renal etiology. Resolved -Renal ultrasound reveals 6mm nonobstructing left renal stone. Possible 4cm right upper pole renal cyst. Patient will follow up as outpatient. -Continue gentle hydration while NPO with lactated Ringer's at 100mL/hr HENRIQUE -s/p trach 7 years ago. -Maintain oxygen saturation greater than 90%. Diabetes Mellitus -HbA1C 7.6 -Insulin slidng scale ACHS -Fingerstick blood glucose monitoring ACHS Hypertension -Currently normotensive. Holding home oral antihypertensives. -Monitor vital signs closely. Hypothyroidism -IV Levothyroxine 130mcg daily, while patient NPO FEN -NPO -Monitor BMP, replete as indicated -IV lactated ringer's at 100 mL/hr Prophylaxis -Heparin 5000units subq TID -Protonix 40mg IV daily Disposition -Continue care in medical- surgical floor. Visit type - Emergency Visit Emergency Visit: Yes ED Registration Date: 02/22/19 Care time: The patient presented to the Emergency Department on the above date and was hospitalized for further evaluation of their emergent condition. - New Patient This patient is new to me today: No - Critical Care Critical Care patient: No - Discharge Referral Referred to [facility] Med P.C.: No ATTENDING PHYSICIAN STATEMENT I saw and evaluated the patient. I reviewed the resident's note and discussed the case with the resident. I agree with the resident's findings and plan as documented. SUBJECTIVE: OBJECTIVE: ASSESSMENT AND PLAN:
--- NOTE | 2019-02-25 13:36 | CONSULT ---
Consult - text type - Consultation Consultation Note: ENT consult Trach change requested in this 58 yo woman with HENRIQUE and a trach, and bowel obstruction who had unsuccessful general anesthesia due to a problem with the current metal trach reportedly being incompatible with the anesthesia equipment , causing desaturations. Also had an unsuccessful attempt at NG tube placement by the nursing staff. P/WD obese BF laying in bed in NAD Metal trach in place, small amount of clear sputum Nose is patent on the left with a large right inferior turbinate OC/OP large tongue, copious clear frothy saliva FONE: left nasal cavity is patent to the nasopharynx, which has some blood clot and clear mucus Imp: Trach change needed, NG tube needed, rhinitis/epistaxis due to NG tube attempted placement Plan: Trach changed to Port[place] 7.0 cuffed/fenestrated trach tube without difficulty. Secured with ties. Cuff was left deflated. NG tube passed, using topical anesthesia with cetacaine, to 75 cm, confirmed with auscultation of air in the stomach, suctioned several hundred cc of clear fluid. Reconsult prn
[2019-02-25] MEDS: NYSTATIN 100000 UNIT/GM TOPICAL OINTMENT 15 GM TUBE TP SCH ×2 (13:58→22:53)
[2019-02-25] MEDS: LEVOTHYROXINE SODIUM 100 MCG VIAL IVPUSH SCH (13:59)
[2019-02-26] MEDS: INSULIN SLIDING SCALE (NOVOLOG) 1 VIAL SQ SCH ×4 (00:15→17:30)
[2019-02-26] MEDS: HEPARIN NA (PORCINE) 5,000 UNITS/ML 1ML VIAL SQ SCH ×2 (05:21→15:17)
[2019-02-26 08:23] LABS: HEMATOCRIT 37.1 % (32.4-45.2); HEMOGLOBIN 12.3 GM/dL (10.7-15.3); MCH 27.4 pg (25.7-33.7); MCHC 33.1 g/dl (32.0-36.0); MEAN CELL VOLUME 82.8 fl (80-96); MEAN PLT VOLUME 8.5 fl (7.5-11.1); PLATELET COUNT 181 K/MM3 (134-434); RBC 4.49 M/mm3 (3.60-5.2); RDW 14.7 % (11.6-15.6)
[2019-02-26 08:46] LABS: BLOOD UREA NITROGEN 8.9 mg/dL (7-18); CALCIUM 8.8 mg/dL (8.5-10.1); CREATININE 0.8 mg/dL (0.55-1.3)
[2019-02-26 09:10] LABS: POTASSIUM 2.9 mmol/L (3.5-5.1)
[2019-02-26] MEDS: LACTATED RINGERS SOLUTION 1,000 ML IV SCH (10:57)
[2019-02-26] MEDS ORDERED: PT OWN MED DRAWER 7, Y5N ONE ×3 (10:58→18:13)
[2019-02-26] MEDS: LEVOTHYROXINE SODIUM 100 MCG VIAL IVPUSH SCH (11:01)
[2019-02-26] MEDS: PANTOPRAZOLE SODIUM 40 MG VIAL IVPUSH SCH (11:01)
[2019-02-26] MEDS: NYSTATIN 100000 UNIT/GM TOPICAL OINTMENT 15 GM TUBE TP SCH ×2 (11:30→22:00)
--- NOTE | 2019-02-26 14:13 | PN ---
Progress Note (short form) - Note Progress Note: Surgery Patient being followed for recurrent supraumbilical ventral hernia reduced under anesthesia in the OR, but case cancelled after patient began to desat on the table. She had her trach exchanges over the weekend and still has the NGT and has remained stable. Vital Signs Temp 98 F 02/26/19 08:00 Pulse 82 02/26/19 08:17 Resp 20 02/26/19 08:00 BP 147/86 02/26/19 08:00 Pulse Ox 95 02/26/19 08:17 Intake & Output 02/25/19 02/26/19 02/26/19 23:59 11:59 23:59 Output Total 2300 Balance -2300 Output: Gastric Drainage 2300 Other: Voiding Method Toilet # Unmeasured Voids Void 2 Bowel Movement Yes No # Bowel Movements 1 CBC, BMP 02/26/19 07:36 02/26/19 07:36 PE: A&Ox3, NAD, flat affect Unlabored resp on RA/trach ABD :obese, soft with large ventral hernia, Non-tender to palpation throughout, no guarding or rebound. Problem List - Problems (1) Incarcerated ventral hernia Assessment/Plan: 58 yo with recurrent incarcerated ventral hernia. Currently stable with NGT and new trach. 1) NPO for OR tomorrow with Sarah for repair with mesh possible x-lap 2) DVT/GI prophylaxis 3) Medical optimization Evaluation and plan discussed with Dr Smith Code(s): K43.6 - OTHER AND UNSP VENTRAL HERNIA WITH OBSTRUCTION, W/O GANGRENE
--- NOTE | 2019-02-26 14:41 | PN ---
Teaching Attending Note Name of Resident: Graciela Becerra ATTENDING PHYSICIAN STATEMENT I saw and evaluated the patient. I reviewed the resident's note and discussed the case with the resident. I agree with the resident's findings and plan as documented. SUBJECTIVE:pain overall improved. diarrhea has now stopped. requesting to eat. denies Cp, SOB, fever,c hills, N/V/C/D OBJECTIVE: Last Vital Signs Temp Pulse Resp BP Pulse Ox 98 F 82 20 147/86 95 02/26/19 08:00 02/26/19 08:17 02/26/19 08:00 02/26/19 08:00 02/26/19 08:17 Intake & Output 02/23/19 02/24/19 02/25/19 02/26/19 23:59 23:59 23:59 23:59 Intake Total 3690 1300 900 Output Total 2300 Balance 3690 1300 900 -2300 General NAD ABdomen soft minimally distended. no longer tender. midline hernia. hypoactive BS ASSESSMENT AND PLAN: 58yo F wtih PMH HENRIQUE s/p trach, HTN, DM, hypothyroid, dyslipidemia and previous hernia repair presented to the ER wtih abdominal pain and diarrhea x3 days and found to have ventral hernia with transverse colon causing partial bowel obstruction 1. Incarcerated Ventral hernia with partial bowel obstruction-s/p NGT placement with 2L of output. pain and distention significantly improved. plan for CT with contrast today to better visualize and plan for surgery tomorrow. cont NPO, ivf and pain control. 2. diarrhea- improved. Cdff negative. 3. MARY- due to dehydration. resolved. resolved. avoid nephrotoxic agents 4. non-obstructing nephrolithasis- no hydro seen. pain not likely due to renal stone. will cont with IVF. can start flomax once tolerating diet to aid in passage 5. HENRIQUE s/p trach with trach change yesterday by ENT 6. HTN- controlled. hold oral agents for now. can re-start as needed 7. DM- A1c pending. hold oral agents. cont BGM and iss 8. Hypothyroid- convert to IV while not able to take po 9. DVT ppx- hep sq
[2019-02-26] MEDS: KCL 10 MEQ IVPB 10 MEQ/100 ML INFUS.BAG IVPB SCH ×4 (15:17→22:48)
[2019-02-26] MEDS ORDERED: SODIUM CHLORIDE IVPB SCH (16:30)
[2019-02-26] MEDS ORDERED: METOPROLOL TARTRATE IVPB SCH (16:30)
--- NOTE | 2019-02-26 16:33 | PN ---
Physical Exam: SUBJECTIVE: Patient seen and examined. She denies abdominal pain, n/v/d, fever, or chills. She is requesting to be able to eat. OBJECTIVE: Vital Signs Period Temp Pulse Resp BP Sys/Leggett Pulse Ox Last 24 Hr 98 F-98.5 F 82-90 18-20 143-189/81-100 95-95 GENERAL: The patient is awake, alert, and fully oriented, in no acute distress. HEAD: Normal with no signs of trauma. EYES: PERRL, extraocular movements intact, sclera anicteric, conjunctiva clear. No ptosis. ENT: Ears normal, nares patent, moist mucous membranes. NECK: Trachea midline, tracheostomy tube in place, limited range of motion, supple. LUNGS: Breath sounds equal, clear to auscultation bilaterally, no wheezes HEART: Regular rate and rhythm, S1, S2 without murmur, rub or gallop. ABDOMEN: Obese. Generalized tenderness to palpation, especially right side. Large ventral hernia present. No discoloration. hypoactive bowel sounds, no guarding EXTREMITIES: 2+ pulses, warm, well-perfused, no edema. NEUROLOGICAL: Cranial nerves II through XII grossly intact. Normal speech, gait not observed. PSYCH: Normal mood, normal affect. SKIN: Warm, dry, normal turgor, no rashes or lesions noted Laboratory Results - last 24 hr 02/25/19 02/25/19 02/25/19 13:56 18:00 23:38 WBC RBC Hgb Hct MCV MCH MCHC RDW Plt Count MPV Sodium Potassium Chloride Carbon Dioxide Anion Gap BUN Creatinine Est GFR (CKD-EPI)AfAm Est GFR (CKD-EPI)NonAf POC Glucometer 120 97 107 Random Glucose Calcium 02/26/19 02/26/19 02/26/19 05:34 07:36 07:36 WBC 4.0 RBC 4.49 Hgb 12.3 Hct 37.1 MCV 82.8 MCH 27.4 MCHC 33.1 RDW 14.7 Plt Count 181 MPV 8.5 Sodium 149 H Potassium 2.9 L* Chloride 106 Carbon Dioxide 33 H Anion Gap 10 BUN 8.9 Creatinine 0.8 Est GFR (CKD-EPI)AfAm 94.85 Est GFR (CKD-EPI)NonAf 81.84 POC Glucometer 109 Random Glucose 118 H Calcium 8.8 02/26/19 12:13 WBC RBC Hgb Hct MCV MCH MCHC RDW Plt Count MPV Sodium Potassium Chloride Carbon Dioxide Anion Gap BUN Creatinine Est GFR (CKD-EPI)AfAm Est GFR (CKD-EPI)NonAf POC Glucometer 103 Random Glucose Calcium Active Medications Generic Name Dose Route Start Last Admin Trade Name Freq PRN Reason Stop Dose Admin Acetaminophen 1,000 mg 02/22/19 02:36 02/22/19 02:51 Ofirmev Injection - IVPB 1,000 mg Q6H PRN Administration PAIN OR FEVER Heparin Sodium (Porcine) 5,000 unit 02/24/19 14:00 02/26/19 15:17 Heparin - SQ 5,000 unit TID LAKESHA Administration Lactated Ringer's 1,000 mls @ 100 mls/hr 02/24/19 10:47 02/26/19 10:57 Lactated Ringers Solution IV Not Given ASDIR LAKESHA Metoprolol Tartrate 5 mg/ 1,005 mls @ 75 mls/hr 02/26/19 16:30 Sodium Chloride IVPB 02/27/19 05:53 ASDIR LAKESHA Insulin Aspart 1 vial 02/22/19 06:00 02/26/19 12:13 Novolog Vial Sliding Scale - SQ Not Given Q6HPO [facility] Protocol Levothyroxine Sodium 130 mcg 02/23/19 10:00 02/26/19 11:01 Synthroid Injection - IVPUSH 130 mcg DAILY LAKESHA Administration Loperamide HCl 2 mg 02/24/19 14:38 Imodium - PO Q8H PRN DIARRHEA Morphine Sulfate 2 mg 02/22/19 03:25 02/22/19 07:04 Morphine Sulfate IVPUSH 2 mg Q4H PRN Administration PAIN LEVEL 6-10 Nystatin 1 applic 02/23/19 10:00 02/26/19 11:30 Mycostatin Ointment - TP Not Given BID LAKESHA Pantoprazole Sodium 40 mg 02/26/19 10:00 02/26/19 11:01 Protonix Iv IVPUSH 40 mg DAILY LAKESHA Administration ASSESSMENT/PLAN: Ms. Elizabeth is a 58y/o female with HENRIQUE (s/p tracheostomy 7 years ago), HTN, HLD, DM, and ventral hernia. She presented to the ER with complaints of abdominal pain associated with vomiting and diarrhea for 3 days. Was admitted for suspected incarcerated hernia. #abdominal pain 2/2 incarcerated supraumbilical hernia Overnight pt's reduced hernia returned. She has been having loose/watery stools intermittently since procedure yesterday. Her diet was advanced to clear liquids and pt appears to be tolerating it well. She may be able to have hernia repair done electively. Will monitor overnight. -Upon presentation, CT showed supraumbilical ventral hernia containing transverse colon, causing partial bowel obstruction, with distended fluid filled loops of right colon, small bowel, and stomach, fat containing umbilical hernia also present. Cardiomegaly and pericardial effusion present. -repair not completed on 02/22 because of incompatibility of pt's trach and OR equipment. Hernia was reduced but returned that night. She had loose bowel movements for several days following. -ENT replaced trach and added NG tube yesterday. Suctioning light brown fluid. -Morphine IV 2mg Q4H for pain -CBC, CMP -PT #MARY, pre-renal, resolved Cr 0.8 -renal U/S- 6mm nonobstructing left renal stone. Possible 4cm right upper pole renal cyst. Recommend out pt not emergent contrast CT or MRI -LR 100ml/hr #nephrolithiasis -start Flomax after pt tolerates diet #HENRIQUE s/p trach 7 years ago. replaced yesterday. #DM A1C 7.6 -SSI -BGM #HTN 150/89 this afternoon, meds were held previously -given Lopressor 5mg IVPB -monitor -add home meds when able to tolerate PO #hypothyroidism -IV levothyroxine until pt is able to tolerate PO meds #FEN NPO monitor lytes LR 100mL/hr #DVT Prophylaxis SCDs Visit type - Emergency Visit Emergency Visit: Yes ED Registration Date: 02/22/19 Care time: The patient presented to the Emergency Department on the above date and was hospitalized for further evaluation of their emergent condition. - New Patient This patient is new to me today: No - Critical Care Critical Care patient: No - Discharge Referral Referred to [facility] Med P.C.: No ATTENDING PHYSICIAN STATEMENT I saw and evaluated the patient. I reviewed the resident's note and discussed the case with the resident. I agree with the resident's findings and plan as documented. SUBJECTIVE: OBJECTIVE: ASSESSMENT AND PLAN:
[2019-02-26] MEDS ORDERED: METOPROLOL TARTRATE 5 MG/5 ML VIAL IVPB ONE ×2 (16:44→19:45)
[2019-02-26 22:24] LABS: BLOOD UREA NITROGEN 6.5 mg/dL (7-18); CALCIUM 8.7 mg/dL (8.5-10.1); CREATININE 0.7 mg/dL (0.55-1.3)
[2019-02-27] MEDS: KCL 10 MEQ IVPB 10 MEQ/100 ML INFUS.BAG IVPB SCH ×8 (01:10→22:45)
[2019-02-27] MEDS: INSULIN SLIDING SCALE (NOVOLOG) 1 VIAL SQ SCH ×4 (01:12→18:00)
[2019-02-27] MEDS ORDERED: PT OWN MED DRAWER 7, Y5N ONE (05:38)
[2019-02-27 07:42] LABS: BASO % 0.3 % (0-2.0); EOS % 2.7 % (0-4.5); HEMATOCRIT 37.2 % (32.4-45.2); HEMOGLOBIN 12.5 GM/dL (10.7-15.3); LYMPH % 17.1 % (8-40); MCH 27.5 pg (25.7-33.7); MCHC 33.5 g/dl (32.0-36.0); MEAN CELL VOLUME 82.3 fl (80-96); MEAN PLT VOLUME 8.5 fl (7.5-11.1); MONO % 5.9 % (3.8-10.2); PLATELET COUNT 191 K/MM3 (134-434); RBC 4.53 M/mm3 (3.60-5.2); RDW 15.1 % (11.6-15.6); WHITE BLOOD COUNT 4.5 K/mm3 (4.0-10.0)
[2019-02-27 07:48] LABS: ALBUMIN 3.4 g/dl (3.4-5.0); BILIRUBIN,TOTAL 0.5 mg/dL (0.2-1); BLOOD UREA NITROGEN 6.4 mg/dL (7-18); CALCIUM 8.6 mg/dL (8.5-10.1); CREATININE 0.7 mg/dL (0.55-1.3); POTASSIUM 3.2 mmol/L (3.5-5.1); TOT PROT 7.2 g/dl (6.4-8.2)
[2019-02-27 07:56] LABS: PROTHROMBIN TIME (PATIENT) 11.8 SEC (9.7-13.0)
[2019-02-27 07:58] LABS: ACTIVATED PTT 34.4 SECONDS (25.2-36.5)
[2019-02-27 08:09] LABS: MAGNESIUM 1.5 mg/dL (1.8-2.4); PHOSPHOROUS 2.4 mg/dL (2.5-4.9)
[2019-02-27] MEDS ORDERED: MAGNESIUM SULF 50% (8.12 MEQ/2 ML-1 GM VIAL) IVPB ONE ×2 (08:29→16:24)
[2019-02-27] MEDS ORDERED: BUPIVACAINE HCL/PF 0.5% (5 MG/ML) 30 ML VIAL IJ ONE ×2 (08:44→12:20)
[2019-02-27] MEDS ORDERED: DEXAMETHASONE SOD PHOSPHATE/PF 10 MG/ML SDV ONE (08:47)
[2019-02-27] MEDS: NYSTATIN 100000 UNIT/GM TOPICAL OINTMENT 15 GM TUBE TP SCH ×2 (09:13→22:17)
[2019-02-27] MEDS: PANTOPRAZOLE SODIUM 40 MG VIAL IVPUSH SCH (09:14)
[2019-02-27] MEDS: LEVOTHYROXINE SODIUM 100 MCG VIAL IVPUSH SCH (09:14)
[2019-02-27] MEDS ORDERED: MIDAZOLAM HCL 2 MG/2 ML SINGLE DOSE VIAL ONE ×2 (09:19)
[2019-02-27] MEDS ORDERED: fentaNYL CITRATE 250 MCG/5 ML VIAL ONE (09:36)
--- NOTE | 2019-02-27 10:00 | PN ---
Progress Note (short form) - Note Progress Note: surgery after reduction pt continued to have clinical plbo. refused to allow exam of hernia and unable to be discharged. ngt with large output now. trach changed. plan- will proceed with repair of hernia. +/- mesh.
[2019-02-27] MEDS ORDERED: AMPICILLIN NA/SULBACTAM NA 1.5 GM VIAL ONE (10:15)
[2019-02-27] MEDS ORDERED: ROCURONIUM BROMIDE 50 MG/5 ML SYRINGE ONE (11:16)
[2019-02-27] MEDS: SODIUM PHOSPHATE - 15 MM in SODIUM CHLORIDE 250 ML IVPB ONE ×2 (11:35→13:58)
[2019-02-27] MEDS: LACTATED RINGERS SOLUTION 1,000 ML IV SCH ×2 (11:36→13:26)
[2019-02-27] MEDS ORDERED: GLYCOPYRROLATE 0.2 MG/1 ML VIAL ONE (11:47)
[2019-02-27] MEDS ORDERED: NEOSTIGMINE METHYLSULFATE 0.5 MG/ML - 10 ML MDV ONE (11:47)
[2019-02-27] MEDS ORDERED: DEXAMETHASONE SOD PHOSPHATE 10 MG/1 ML VIAL IVPUSH ONE (12:20)
[2019-02-27] MEDS ORDERED: morphine SULFATE 4 MG/ML VIAL IVPB PRN (12:38)
[2019-02-27] MEDS ORDERED: ONDANSETRON 4 MG/2 ML VIAL IVPUSH PRN (12:38)
--- NOTE | 2019-02-27 12:44 | OP ---
Operative Note - Note: Operative Date: 02/27/19 Pre-Operative Diagnosis: complex recurrent incarcerated ventral hernia, LBO Operation: open repair complex incarcerated recurrent ventral hernia with mesh, utilizing component seperation, partial omentectomy, retrorectus block Findings: multiple defects adding to 4"x3" defect with incarcerated transverse colon and omentum Implants: phasix 8"x6" mesh Post-Operative Diagnosis: Same as Pre-op Surgeon: Timothy Smith Water Chemist: Sanjay Pimentel Anesthesiologist/SUPERVISOR SPECIAL EDUCATION: Shirley Saenz Anesthesia: General Specimens Removed: hernia sac and portion of omentum Estimated Blood Loss (mls): 30 Drains & Tubes with Location: rebecca subcutaneous space Operative Report Dictated: Yes
[2019-02-27] MEDS ORDERED: IBUPROFEN 800 MG/8 ML IJ IVPB SCH (12:45)
[2019-02-27] MEDS ORDERED: ACETAMINOPHEN INJECTION 100 ML IVPB ONE (13:03)
--- NOTE | 2019-02-27 13:21 | SURG ---
Surgery Boat Canvas Maker Installer Note Boat Canvas Maker Installer: Sanjay Pimentel PA-C Date of Service: 02/27/19 Diagnosis: complex recurrent incarcerated ventral hernia, Large bowel obstruction Procedure: Open repair complex incarcerated recurrent ventral hernia with mesh, utilizing component separation, partial omentectomy, retrorectus block I was present for the entirety of the operative procedure. For further detail, please refer to operative report. Visit type - Case Type Case Type: ED Admission
[2019-02-27] MEDS ORDERED: LOPERAMIDE HCL 2 MG CAPSULE PO PRN (13:26)
[2019-02-27] MEDS ORDERED: ACETAMINOPHEN 1000 MG/100 ML VIAL (NON FORMULARY) IVPB PRN (13:26)
--- NOTE | 2019-02-27 13:26 | PN ---
Physical Exam: SUBJECTIVE: Patient seen and examined. Pt is comfortable following surgery. Denies n/v. OBJECTIVE: Vital Signs Period Temp Pulse Resp BP Sys/Leggett Pulse Ox Last 24 Hr 98.3 F-99.3 F 60-856 18-20 156-205/86-116 92-93 GENERAL: The patient is awake, alert, and fully oriented, in no acute distress. HEAD: Normal with no signs of trauma. EYES: PERRL, extraocular movements intact, sclera anicteric, conjunctiva clear. No ptosis. ENT: Ears normal, nares patent, moist mucous membranes. NECK: Trachea midline, tracheostomy tube in place, limited range of motion, supple. LUNGS: Breath sounds equal, clear to auscultation bilaterally, no wheezes HEART: Regular rate and rhythm, S1, S2 without murmur, rub or gallop. ABDOMEN: Obese. Generalized tenderness to palpation, especially right side. Incision intact with drain in place. No discoloration. hypoactive bowel sounds, no guarding EXTREMITIES: 2+ pulses, warm, well-perfused, no edema. NEUROLOGICAL: Cranial nerves II through XII grossly intact. Normal speech, gait not observed. PSYCH: Normal mood, normal affect. SKIN: Warm, dry, normal turgor, no rashes or lesions noted Laboratory Results - last 24 hr 02/26/19 02/26/19 02/26/19 17:29 21:30 22:54 WBC RBC Hgb Hct MCV MCH MCHC RDW Plt Count MPV Absolute Neuts (auto) Neutrophils % Lymphocytes % Monocytes % Eosinophils % Basophils % Nucleated RBC % PT with INR INR PTT (Actin FS) Sodium 146 H Potassium 3.0 L Chloride 104 Carbon Dioxide 35 H Anion Gap 7 L BUN 6.5 L Creatinine 0.7 Est GFR (CKD-EPI)AfAm 111.47 Est GFR (CKD-EPI)NonAf 96.18 POC Glucometer 93 93 Random Glucose 97 Calcium 8.7 Phosphorus Magnesium Total Bilirubin AST ALT Alkaline Phosphatase Total Protein Albumin Blood Type Antibody Screen 02/27/19 02/27/19 02/27/19 06:20 06:20 06:20 WBC 4.5 RBC 4.53 Hgb 12.5 Hct 37.2 MCV 82.3 MCH 27.5 MCHC 33.5 RDW 15.1 Plt Count 191 MPV 8.5 Absolute Neuts (auto) 3.3 Neutrophils % 74.0 Lymphocytes % 17.1 D Monocytes % 5.9 Eosinophils % 2.7 Basophils % 0.3 Nucleated RBC % 0 PT with INR 11.80 INR 1.00 PTT (Actin FS) 34.4 Sodium Potassium Chloride Carbon Dioxide Anion Gap BUN Creatinine Est GFR (CKD-EPI)AfAm Est GFR (CKD-EPI)NonAf POC Glucometer Random Glucose Calcium Phosphorus Magnesium Total Bilirubin AST ALT Alkaline Phosphatase Total Protein Albumin Blood Type B POSITIVE Antibody Screen Negative 02/27/19 06:20 WBC RBC Hgb Hct MCV MCH MCHC RDW Plt Count MPV Absolute Neuts (auto) Neutrophils % Lymphocytes % Monocytes % Eosinophils % Basophils % Nucleated RBC % PT with INR INR PTT (Actin FS) Sodium 143 Potassium 3.2 L Chloride 99 Carbon Dioxide 32 Anion Gap 12 BUN 6.4 L Creatinine 0.7 Est GFR (CKD-EPI)AfAm 111.47 Est GFR (CKD-EPI)NonAf 96.18 POC Glucometer Random Glucose 105 Calcium 8.6 Phosphorus 2.4 L Magnesium 1.5 L Total Bilirubin 0.5 AST 27 ALT 24 Alkaline Phosphatase 84 Total Protein 7.2 Albumin 3.4 Blood Type Antibody Screen Active Medications Generic Name Dose Route Start Last Admin Trade Name Freq PRN Reason Stop Dose Admin Acetaminophen 1,000 mg 02/22/19 02:36 02/22/19 02:51 Ofirmev Injection - IVPB 1,000 mg Q6H PRN Administration PAIN OR FEVER Fentanyl 50 mcg 02/27/19 12:45 Sublimaze Injection - IVPUSH 02/28/19 12:44 [id number] PRN PAIN-PACU ORDER X 4 DOSES ONLY Heparin Sodium (Porcine) 5,000 unit 02/24/19 14:00 02/26/19 15:17 Heparin - SQ 5,000 unit TID LAKESHA Administration Lactated Ringer's 1,000 mls @ 100 mls/hr 02/24/19 10:47 02/27/19 11:36 Lactated Ringers Solution IV Not Given ASDIR LAKESHA Sodium Phosphate 15 mm/ Sodium 255 mls @ 62.5 mls/hr 02/27/19 09:55 02/27/19 11:35 Chloride IVPB 02/27/19 13:59 Not Given ONCE ONE Ibuprofen 800 mg 02/27/19 13:00 Caldolor Injection - IVPB 03/01/19 03:01 Q6H-IV LAKESHA Insulin Aspart 1 vial 02/22/19 06:00 02/27/19 11:38 Novolog Vial Sliding Scale - SQ Not Given Q6HPO [facility] Protocol Levothyroxine Sodium 130 mcg 02/23/19 10:00 02/27/19 09:14 Synthroid Injection - IVPUSH Not Given DAILY [facility] Loperamide HCl 2 mg 02/24/19 14:38 Imodium - PO Q8H PRN DIARRHEA Morphine Sulfate 8 mg 02/27/19 12:38 Morphine Sulfate IVPB Q3H PRN PAIN LEVEL 7 - 10 Nystatin 1 applic 02/23/19 10:00 02/27/19 09:13 Mycostatin Ointment - TP Not Given BID [facility] Ondansetron HCl 4 mg 02/27/19 12:38 Zofran Injection IVPUSH Q6H PRN NAUSEA Oxycodone HCl 7.5 mg 02/27/19 12:38 Roxicodone - PO Q4H PRN PAIN LEVEL 4 - 6 Pantoprazole Sodium 40 mg 02/26/19 10:00 02/27/19 09:14 Protonix Iv IVPUSH 02/27/19 15:00 Not Given DAILY [facility] Pantoprazole Sodium 40 mg 02/28/19 10:00 Protonix Iv IVPUSH DAILY [facility] ASSESSMENT/PLAN: Ms. Elizabeth is a 58y/o female with HENRIQUE (s/p tracheostomy 7 years ago), HTN, HLD, DM, and ventral hernia. She presented to the ER with complaints of abdominal pain associated with vomiting and diarrhea for 3 days. Was admitted for suspected incarcerated hernia. #abdominal pain 2/2 incarcerated supraumbilical hernia s/p repair with mesh Hernia repair with mesh performed today. -CT showed supraumbilical ventral hernia containing transverse colon, causing partial bowel obstruction, with distended fluid filled loops of right colon, small bowel, and stomach, fat containing umbilical hernia also present. -repair not completed on 02/22 because of incompatibility of pt's trach and OR equipment. Hernia was reduced but returned that night. She had loose bowel movements for several days following. -ENT replaced trach and added NG tube 2 days ago. Suctioning light brown fluid. -advanced diet to clear liquids -continue LR 100mL/hr -resumed PO meds for HTN and hypothyroidism -tylenol 1g Q6H PRN pain -oxycodone 7.5mg Q4H PRN pain 4-6 -Morphine IV 8mg Q3H PRN pain 7-10 -Imodium 2mg Q8H PRN diarrhea -CBC, CMP #HTN pt was normotensive until yesterday afternoon. She was given Lopressor 5mg IVPB x 2 overnight. She tolerated anesthesia well today. Systolic pressure is at 160. Will resume home meds. -restart lisinopril 40mg this afternoon -restart clonodine 0.1mg @22:00 with parameters to hold for <100/70 -monitor #hypokalemia 2.9-->3.3 -KCl 10meq x 3 bags this afternoon, pt brought to OR prior to administration anesthesia acknowledged -CMP in the morning #hypomagnesemia 1.5 -1g Mg Sulfate this afternoon, brought to OR prior to administration -recheck in the morning #hypophosphatemia 2.4 -Na phosphate 15mm x 1 bag -recheck in the morning #MARY, pre-renal, resolved Cr 0.7 -renal U/S- 6mm non-obstructing left renal stone. Possible 4cm right upper pole renal cyst. Recommend out pt not emergent contrast CT or MRI -LR 100ml/hr #hypothyroidism -home dose synthroid to begin PO tomorrow #nephrolithiasis -start Flomax after pt tolerates diet #HENRIQUE s/p trach 7 years ago. replaced 2 days ago. #DM A1C 7.6 -SSI -BGM #FEN NPO monitor lytes LR 100mL/hr #DVT Prophylaxis SCDs Visit type - Emergency Visit Emergency Visit: Yes ED Registration Date: 02/22/19 Care time: The patient presented to the Emergency Department on the above date and was hospitalized for further evaluation of their emergent condition. - New Patient This patient is new to me today: No - Critical Care Critical Care patient: No - Discharge Referral Referred to [facility] Med P.C.: No ATTENDING PHYSICIAN STATEMENT I saw and evaluated the patient. I reviewed the resident's note and discussed the case with the resident. I agree with the resident's findings and plan as documented. SUBJECTIVE: OBJECTIVE: ASSESSMENT AND PLAN:
[2019-02-27] MEDS ORDERED: ACETAMINOPHEN 1000 MG/100 ML VIAL (NON FORMULARY) IVPB ONE (13:40)
--- NOTE | 2019-02-27 13:51 | OP ---
DATE OF OPERATION: 02/27/2019 PREOPERATIVE DIAGNOSIS: Complex, recurrent, incarcerated, ventral hernia with large bowel obstruction. POSTOPERATIVE DIAGNOSIS: Complex, recurrent, incarcerated, ventral hernia with large bowel obstruction. PROCEDURE: Open repair of complex, recurrent, incarcerated ventral hernia utilizing mesh as well as component separation and bilateral myofascial release. In addition, there was a partial omentectomy and a retrorectus block. SURGEON: Timothy Smith DO AUTOMATIC PINSETTER MECHANIC: JOSE C Ocampo ANESTHESIA: Shirley Saenz DO (general) SPECIMENS: Hernia sac with portion of omentum. DRAINS: Holland-Melgar drain and subcutaneous tissue. IMPLANTS: 8-inch x 6-inch Phasix mesh in the retrorectus space extraperitoneal. BLOOD LOSS: Approximately 30 mL. DISPOSITION: Recovery room in stable condition. BRIEF HISTORY: This is a 58-year-old female who presented to [facility] with chronically incarcerated, recurrent ventral hernia containing large bowel. She initially had what appeared to be a complete large bowel obstruction. This was reduced under anesthesia; however, the repair of the hernia could not be done at that time due to inability to obtain a safe airway because of an old tracheostomy attachment. The patient was placed on diet, was having bowel movements but was unable to be fully discharged because of persistent complaints of likely partial large bowel obstruction. A repeat CAT scan suggested that this was still causing issue. The patient had her tracheostomy changed to a more compatible form, and she presents today for surgery. DESCRIPTION OF PROCEDURE: The patient was placed in supine position. After general anesthesia was initiated, Unasyn antibiotic was given without incident. The patient does have a history of PENICILLIN allergy but had no adverse reaction. Next, a vertical incision was made over the previous site from her umbilicus going approximately 6 inches north. Electrocautery was used to go through skin and subcutaneous tissue. The hernia sac was easily identified. It was dissected off of its subcutaneous attachments. The neck of the hernia sac was identified. The sac was opened. It was a slider with transverse colon adhesed to the hernia sac. This was carefully taken off. The transverse colon was replaced into the abdominal cavity, and the hernia sac was resected. A portion of omentum had to be removed during this process because it appeared to be damaged. Next, the patient had multiple other hernia defects near this main one. These defects were connected to essentially create 1 defect that was approximately 4 inches in length and 3 inches in width. All adhesions to the underlying abdominal wall were taken down. Due to the tension and the size of the defect, it was felt that this could not be adequately repaired primarily without an early risk of recurrence. Therefore, a component separation was done, and the posterior sheath was from the overlying rectus as well as the anterior sheath. This was taken out all the way to the obliques where bilateral releases were done. It was unable to remove the posterior sheath from the anterior sheath at the midline superior and inferior. At this point with the retrorectus space dissected out, a 3-0 V-Lock on a noncutting needle was used to close the posterior sheath in a running layer. The 2 V-Locks were met in the middle and tied. At this point, a block was done going into the retrorectus space near where the release was using 30 mL of Marcaine mixed with a steroid. At no point did the needle enter the abdominal cavity. Next, a Phasix 8-inch x 6-inch mesh was placed vertically into the retrorectus space. A slit was made superior and inferior to go around the midline. This was fashioned laterally using AbsorbaTack, and it was sutured to the anterior sheath both superior and inferior around the bifurcations. At this point, with the mesh well spread out, it was irrigated. The anterior rectus sheath was then closed primarily with multiple interrupted No. 1 Prolene sutures. With the anterior sheath completely closed, a Holland-Melgar drain was placed in the subcutaneous space. The patient was noted to be morbidly obese with a significant amount of adipose tissue, and she was felt to likely develop a large seroma. This was brought out through the skin in the left lower portion of her abdomen. Next, irrigation of the subcutaneous space was done. The skin was closed with jhon. Dermabond dressing was placed, and an abdominal binder was placed. PLAN: Patient had her nasogastric tube removed at the end of the operation as her partial obstruction is not relieved. She would return to her hospital room where she would need pain control and await return of bowel function. Once her analgesia is controlled with oral analgesics and she is able to tolerate a liquid diet, she can likely be discharged. The Holland-Melgar drain was secured with a silk drain stitch. No Lockhart catheter was used during the operation. DO DOMINIQUE HAYNES/[id number] MTDD
[2019-02-27] MEDS: IBUPROFEN 800 MG/8 ML IJ IVPB SCH ×3 (15:54→22:15)
[2019-02-27] MEDS ORDERED: LISINOPRIL 20 MG TABLET (FP) PO ONE (17:17)
[2019-02-27] MEDS ORDERED: cloNIDine HCL 0.1 MG TABLET PO ONE (18:14)
--- NOTE | 2019-02-27 19:03 | PN ---
Teaching Attending Note Name of Resident: Graciela Becerra ATTENDING PHYSICIAN STATEMENT I saw and evaluated the patient. I reviewed the resident's note and discussed the case with the resident. I agree with the resident's findings and plan as documented. SUBJECTIVE: Feels okay post-op. Pain well controlled. No CP/Palps. No nausea/ vomiting. OBJECTIVE: Afebrile, Hemodynamicaly Stable. Last Vital Signs Temp Pulse Resp BP Pulse Ox 98.2 F 74 18 151/86 99 02/27/19 16:10 02/27/19 16:10 02/27/19 18:00 02/27/19 16:10 02/27/19 18:00 HEENT - s/p Trach to RA Heart - S1, S2, RRR Lungs - good air entry bilaterally Abdomen - High BMI, Surgical wound dressed with abdominal binder in place. Extremities - Edema +. No calf tenderness. Laboratory Results - last 24 hr 02/26/19 02/26/19 02/27/19 21:30 22:54 06:20 WBC RBC Hgb Hct MCV MCH MCHC RDW Plt Count MPV Absolute Neuts (auto) Neutrophils % Lymphocytes % Monocytes % Eosinophils % Basophils % Nucleated RBC % PT with INR 11.80 INR 1.00 PTT (Actin FS) 34.4 Sodium 146 H Potassium 3.0 L Chloride 104 Carbon Dioxide 35 H Anion Gap 7 L BUN 6.5 L Creatinine 0.7 Est GFR (CKD-EPI)AfAm 111.47 Est GFR (CKD-EPI)NonAf 96.18 POC Glucometer 93 Random Glucose 97 Calcium 8.7 Phosphorus Magnesium Total Bilirubin AST ALT Alkaline Phosphatase Total Protein Albumin Blood Type Antibody Screen 02/27/19 02/27/19 02/27/19 06:20 06:20 06:20 WBC 4.5 RBC 4.53 Hgb 12.5 Hct 37.2 MCV 82.3 MCH 27.5 MCHC 33.5 RDW 15.1 Plt Count 191 MPV 8.5 Absolute Neuts (auto) 3.3 Neutrophils % 74.0 Lymphocytes % 17.1 D Monocytes % 5.9 Eosinophils % 2.7 Basophils % 0.3 Nucleated RBC % 0 PT with INR INR PTT (Actin FS) Sodium 143 Potassium 3.2 L Chloride 99 Carbon Dioxide 32 Anion Gap 12 BUN 6.4 L Creatinine 0.7 Est GFR (CKD-EPI)AfAm 111.47 Est GFR (CKD-EPI)NonAf 96.18 POC Glucometer Random Glucose 105 Calcium 8.6 Phosphorus 2.4 L Magnesium 1.5 L Total Bilirubin 0.5 AST 27 ALT 24 Alkaline Phosphatase 84 Total Protein 7.2 Albumin 3.4 Blood Type B POSITIVE Antibody Screen Negative 02/27/19 17:58 WBC RBC Hgb Hct MCV MCH MCHC RDW Plt Count MPV Absolute Neuts (auto) Neutrophils % Lymphocytes % Monocytes % Eosinophils % Basophils % Nucleated RBC % PT with INR INR PTT (Actin FS) Sodium Potassium Chloride Carbon Dioxide Anion Gap BUN Creatinine Est GFR (CKD-EPI)AfAm Est GFR (CKD-EPI)NonAf POC Glucometer 146 Random Glucose Calcium Phosphorus Magnesium Total Bilirubin AST ALT Alkaline Phosphatase Total Protein Albumin Blood Type Antibody Screen Current Medications Generic Name Dose Route Start Last Admin Trade Name Freq PRN Reason Stop Dose Admin Acetaminophen 1,000 mg 02/27/19 13:26 02/27/19 13:28 Ofirmev Injection - IVPB 1,000 mg Q6H PRN Administration FEVER Heparin Sodium (Porcine) 5,000 unit 02/27/19 14:00 Heparin - SQ TID LAKESHA Lactated Ringer's 1,000 mls @ 100 mls/hr 02/27/19 13:26 02/27/19 13:26 Lactated Ringers Solution IV 100 mls/hr ASDIR LAKESHA Administration Potassium Chloride 10 meq in 100 mls @ 100 mls/hr 02/27/19 16:30 Potassium Chloride 10 Meq Premix Ivpb - IVPB 02/27/19 19:29 Q60M LAKESHA Ibuprofen 800 mg 02/27/19 13:00 02/27/19 16:10 Caldolor Injection - IVPB 03/01/19 03:01 800 mg Q6H-IV LAKESHA Administration Insulin Aspart 1 vial 02/27/19 18:00 02/27/19 18:00 Novolog Vial Sliding Scale - SQ Not Given Q6HPO [facility] Protocol Levothyroxine Sodium 100 mcg/ 175 mcg 02/28/19 07:00 Levothyroxine Sodium 75 mcg PO DAILY@0700 LAKESHA Lisinopril 40 mg 02/28/19 10:00 Prinivil PO DAILY LAKESHA Loperamide HCl 2 mg 02/27/19 13:26 Imodium - PO Q8H PRN DIARRHEA Morphine Sulfate 8 mg 02/27/19 12:38 Morphine Sulfate IVPB Q3H PRN PAIN LEVEL 7 - 10 Non-Formulary Medication 0.1 mg 02/27/19 22:00 Clonidine Hcl [Clonidine Hcl Er] PO BID [facility] Nystatin 1 applic 02/27/19 22:00 Mycostatin Ointment - TP BID [facility] Ondansetron HCl 4 mg 02/27/19 12:38 Zofran Injection IVPUSH Q6H PRN NAUSEA Oxycodone HCl 7.5 mg 02/27/19 12:38 Roxicodone - PO Q4H PRN PAIN LEVEL 4 - 6 Pantoprazole Sodium 40 mg 02/28/19 10:00 Protonix Iv IVPUSH DAILY [facility] Rosuvastatin Calcium 20 mg 02/27/19 22:00 Crestor - PO HS [facility] Home Medications Medication Instructions Recorded Clonidine HCl [Clonidine HCl ER] 0.1 mg PO BID 02/21/19 Lisinopril [Prinivil -] 40 mg PO DAILY 02/21/19 Metformin HCl [Metformin HCl ER] 500 mg PO BIDAC 02/21/19 Metoclopramide HCl [Reglan -] 10 mg PO TID 02/21/19 Rosuvastatin Calcium [Crestor] 20 mg PO HS 02/21/19 Levothyroxine Sodium [Synthroid] 175 mcg PO ACBK 02/22/19 ASSESSMENT AND PLAN: 58 year old male with history of HENRIQUE s/p Trach, HTN, DM 2, hypothyroidism, HLD, s/p hernia repair presented with abdominal abdominal pain and diarrhea x 3 days , found to have ventral hernia with transverse colon causing partial bowel obstruction. 1. Incarcerated Ventral hernia with partial bowel obstruction Immediately post-op s/p Open repair complex incarcerated recurrent ventral hernia with mesh Continue IV hydration Diet advancement as per Surgery. Analgesia as per Sx. 2. MARY sec to dehydration/diarrhea - resolved with IV hydration. 3. Non-obstructing Nephrolithasis - for out-patient urology referral. 4. HENRIQUE s/p Trach s/p trach exchange by ENT. Currently comfortable on RA. 5. HTN - resume Clonidine, Lisinopril. 6. DM 2 - maintain on novolog sliding scale. Metformin held. 7. Hypothyroidism - continue Levothyroxine. 8. HLD - continue Crestor. 9. Electrolyte Abnormalities - Hypokalemia/Hypophosphatemia/Hypomagnesemia - repleted. DVT Px - Heparin SQ GI Px - PPI
[2019-02-27] MEDS ORDERED: PATIENT'S OWN MEDICATION (NON-FORMULARY) (Clonidine Hcl [Clonidine Hcl Er] 0.1 MG) PO SCH ×2 (22:00)
[2019-02-27] MEDS: ROSUVASTATIN CA 20 MG TABLET (FP) PO SCH (22:16)
[2019-02-27] MEDS: HEPARIN NA (PORCINE) 5,000 UNITS/ML 1ML VIAL SQ SCH (22:16)
[2019-02-28] MEDS: INSULIN SLIDING SCALE (NOVOLOG) 1 VIAL SQ SCH ×4 (00:20→19:54)
[2019-02-28] MEDS: IBUPROFEN 800 MG/8 ML IJ IVPB SCH ×2 (02:22→09:02)
[2019-02-28] MEDS ORDERED: LEVOTHYROXINE NA 100 MCG TABLET (FP) ONE (06:52)
[2019-02-28] MEDS ORDERED: INSULIN (NOVOLOG) ASPART 100 UNITS/ML 10ML VIAL ONE (06:52)
[2019-02-28] MEDS ORDERED: LEVOTHYROXINE NA 75 MCG TABLET (FP) ONE (06:53)
[2019-02-28] MEDS ORDERED: LEVOTHYROXINE SODIUM 100 MCG VIAL IVPUSH SCH (07:00)
[2019-02-28] MEDS ORDERED: LEVOTHYROXINE NA 88 MCG TABLET (FP) PO SCH (07:00)
[2019-02-28] MEDS: HEPARIN NA (PORCINE) 5,000 UNITS/ML 1ML VIAL SQ SCH ×3 (07:05→22:29)
[2019-02-28] MEDS: LEVOTHYROXINE 100 MCG, LEVOTHYROXINE 75 MCG PO SCH (07:06)
--- NOTE | 2019-02-28 07:37 | PN ---
Physical Exam: SUBJECTIVE: Patient seen and examined. She reports abdominal pain that improves with pain medication. She has not had nausea or vomiting. Tolerating liquids well. OBJECTIVE: Vital Signs Period Temp Pulse Resp BP Sys/Leggett Pulse Ox Last 24 Hr 97.8 F-98.2 F 72-102 18-22 128-187/78-102 92-100 GENERAL: The patient is awake, alert, and fully oriented, in no acute distress. HEAD: Normal with no signs of trauma. EYES: PERRL, extraocular movements intact, sclera anicteric, conjunctiva clear. No ptosis. ENT: Ears normal, nares patent, moist mucous membranes. NECK: Trachea midline, tracheostomy tube in place, limited range of motion, supple. LUNGS: Breath sounds equal, clear to auscultation bilaterally, no wheezes HEART: Regular rate and rhythm, S1, S2 without murmur, rub or gallop. ABDOMEN: Obese. Generalized tenderness to palpation, especially right side. Incision intact with drain in place. No discoloration. hypoactive bowel sounds, no guarding EXTREMITIES: 2+ pulses, warm, well-perfused, no edema. NEUROLOGICAL: Cranial nerves II through XII grossly intact. Normal speech, gait not observed. PSYCH: Normal mood, normal affect. SKIN: Warm, dry, normal turgor, no rashes or lesions noted Laboratory Results - last 24 hr 02/27/19 02/27/19 02/27/19 06:20 06:20 06:20 WBC 4.5 RBC 4.53 Hgb 12.5 Hct 37.2 MCV 82.3 MCH 27.5 MCHC 33.5 RDW 15.1 Plt Count 191 MPV 8.5 Absolute Neuts (auto) 3.3 Neutrophils % 74.0 Lymphocytes % 17.1 D Monocytes % 5.9 Eosinophils % 2.7 Basophils % 0.3 Nucleated RBC % 0 PT with INR 11.80 INR 1.00 PTT (Actin FS) 34.4 Sodium Potassium Chloride Carbon Dioxide Anion Gap BUN Creatinine Est GFR (CKD-EPI)AfAm Est GFR (CKD-EPI)NonAf POC Glucometer Random Glucose Calcium Phosphorus Magnesium Total Bilirubin AST ALT Alkaline Phosphatase Total Protein Albumin Blood Type B POSITIVE Antibody Screen Negative 02/27/19 02/27/19 02/27/19 06:20 17:58 21:47 WBC RBC Hgb Hct MCV MCH MCHC RDW Plt Count MPV Absolute Neuts (auto) Neutrophils % Lymphocytes % Monocytes % Eosinophils % Basophils % Nucleated RBC % PT with INR INR PTT (Actin FS) Sodium 143 Potassium 3.2 L Chloride 99 Carbon Dioxide 32 Anion Gap 12 BUN 6.4 L Creatinine 0.7 Est GFR (CKD-EPI)AfAm 111.47 Est GFR (CKD-EPI)NonAf 96.18 POC Glucometer 146 98 Random Glucose 105 Calcium 8.6 Phosphorus 2.4 L Magnesium 1.5 L Total Bilirubin 0.5 AST 27 ALT 24 Alkaline Phosphatase 84 Total Protein 7.2 Albumin 3.4 Blood Type Antibody Screen 02/28/19 07:02 WBC RBC Hgb Hct MCV MCH MCHC RDW Plt Count MPV Absolute Neuts (auto) Neutrophils % Lymphocytes % Monocytes % Eosinophils % Basophils % Nucleated RBC % PT with INR INR PTT (Actin FS) Sodium Potassium Chloride Carbon Dioxide Anion Gap BUN Creatinine Est GFR (CKD-EPI)AfAm Est GFR (CKD-EPI)NonAf POC Glucometer 107 Random Glucose Calcium Phosphorus Magnesium Total Bilirubin AST ALT Alkaline Phosphatase Total Protein Albumin Blood Type Antibody Screen Active Medications Generic Name Dose Route Start Last Admin Trade Name Freq PRN Reason Stop Dose Admin Acetaminophen 1,000 mg 02/27/19 13:26 02/27/19 13:28 Ofirmev Injection - IVPB 1,000 mg Q6H PRN Administration FEVER Heparin Sodium (Porcine) 5,000 unit 02/27/19 14:00 02/28/19 07:05 Heparin - SQ 5,000 unit TID LAKESHA Administration Lactated Ringer's 1,000 mls @ 100 mls/hr 02/27/19 13:26 02/27/19 13:26 Lactated Ringers Solution IV 100 mls/hr ASDIR LAKESHA Administration Ibuprofen 800 mg 02/27/19 13:00 02/28/19 02:22 Caldolor Injection - IVPB 03/01/19 03:01 800 mg Q6H-IV LAKEHSA Administration Insulin Aspart 1 vial 02/27/19 18:00 02/28/19 07:05 Novolog Vial Sliding Scale - SQ Not Given Q6HPO [facility] Protocol Levothyroxine Sodium 100 mcg/ 175 mcg 02/28/19 07:00 02/28/19 07:06 Levothyroxine Sodium 75 mcg PO 175 mcg DAILY@0700 LAKESHA Administration Lisinopril 40 mg 02/28/19 10:00 Prinivil PO DAILY LAKESHA Loperamide HCl 2 mg 02/27/19 13:26 Imodium - PO Q8H PRN DIARRHEA Morphine Sulfate 8 mg 02/27/19 12:38 Morphine Sulfate IVPB Q3H PRN PAIN LEVEL 7 - 10 Non-Formulary Medication 0.1 mg 02/27/19 22:00 Clonidine Hcl [Clonidine Hcl Er] PO BID LAKESHA Nystatin 1 applic 02/27/19 22:00 02/27/19 22:17 Mycostatin Ointment - TP 1 applic BID LAKESHA Administration Ondansetron HCl 4 mg 02/27/19 12:38 Zofran Injection IVPUSH Q6H PRN NAUSEA Oxycodone HCl 7.5 mg 02/27/19 12:38 Roxicodone - PO Q4H PRN PAIN LEVEL 4 - 6 Pantoprazole Sodium 40 mg 02/28/19 10:00 Protonix - PO DAILY LAKESHA Rosuvastatin Calcium 20 mg 02/27/19 22:00 02/27/19 22:16 Crestor - PO 20 mg HS LAKESHA Administration ASSESSMENT/PLAN: Ms. Elizabeth is a 58y/o female with HENRIQUE (s/p tracheostomy 7 years ago), HTN, HLD, DM, and ventral hernia. She presented to the ER with complaints of abdominal pain associated with vomiting and diarrhea for 3 days. Was admitted for suspected incarcerated hernia. #abdominal pain 2/2 incarcerated supraumbilical hernia s/p repair with mesh Hernia repair with mesh performed post op day 1 -CT showed supraumbilical ventral hernia containing transverse colon, causing partial bowel obstruction, with distended fluid filled loops of right colon, small bowel, and stomach, fat containing umbilical hernia also present. -repair not completed on 02/22 because of incompatibility of pt's trach and OR equipment. Hernia was reduced but returned that night. She had loose bowel movements for several days following. -ENT replaced trach and added NG tube 2 days ago. Suctioning light brown fluid. -advanced diet to clear liquids -continue LR 100mL/hr -resumed PO meds for HTN and hypothyroidism -tylenol 1g Q6H PRN pain -oxycodone 7.5mg Q4H PRN pain 4-6 -Morphine IV 8mg Q3H PRN pain 7-10 -Imodium 2mg Q8H PRN diarrhea -CBC, CMP #HTN well-controlled -restart lisinopril 40mg this afternoon -waiting for pt's home clonidine ER, not in pharmacy here -monitor #hypokalemia 3.3 -repleted -repeat CMP #hypomagnesemia 1.7 -repleted -Mg lab #hypophosphatemia, resolved 3.4 -will monitor #MARY, pre-renal, resolved Cr 0.9 -renal U/S- 6mm non-obstructing left renal stone. Possible 4cm right upper pole renal cyst. Recommend out pt not emergent contrast CT or MRI -LR 100ml/hr #hypothyroidism -home dose synthroid to begin PO tomorrow #nephrolithiasis -start Flomax after pt tolerates diet #HENRIQUE s/p trach 7 years ago. replaced 2 days ago. #DM A1C 7.6 -SSI -BGM #FEN NPO monitor lytes LR 100mL/hr #DVT Prophylaxis SCDs Visit type - Emergency Visit Emergency Visit: Yes ED Registration Date: 02/22/19 Care time: The patient presented to the Emergency Department on the above date and was hospitalized for further evaluation of their emergent condition. - New Patient This patient is new to me today: No - Critical Care Critical Care patient: No - Discharge Referral Referred to [facility] Med P.C.: No ATTENDING PHYSICIAN STATEMENT I saw and evaluated the patient. I reviewed the resident's note and discussed the case with the resident. I agree with the resident's findings and plan as documented. SUBJECTIVE: OBJECTIVE: ASSESSMENT AND PLAN:
[2019-02-28 08:45] LABS: BASO % 0.2 % (0-2.0); EOS % 2.6 % (0-4.5); HEMATOCRIT 33.7 % (32.4-45.2); LYMPH % 15.1 % (8-40); MCH 27.4 pg (25.7-33.7); MCHC 32.8 g/dl (32.0-36.0); MEAN CELL VOLUME 83.7 fl (80-96); MEAN PLT VOLUME 8.4 fl (7.5-11.1); MONO % 6.2 % (3.8-10.2); NEUT % 75.9 % (42.8-82.8); PLATELET COUNT 173 K/MM3 (134-434); RBC 4.02 M/mm3 (3.60-5.2); RDW 15.2 % (11.6-15.6); WHITE BLOOD COUNT 5.2 K/mm3 (4.0-10.0)
[2019-02-28 08:50] LABS: ALBUMIN 2.7 g/dl (3.4-5.0); BILIRUBIN,TOTAL 0.5 mg/dL (0.2-1); BLOOD UREA NITROGEN 11.8 mg/dL (7-18); CALCIUM 7.7 mg/dL (8.5-10.1); CREATININE 0.9 mg/dL (0.55-1.3); MAGNESIUM 1.7 mg/dL (1.8-2.4); PHOSPHOROUS 3.4 mg/dL (2.5-4.9); POTASSIUM 3.3 mmol/L (3.5-5.1)
[2019-02-28] MEDS: NYSTATIN 100000 UNIT/GM TOPICAL OINTMENT 15 GM TUBE TP SCH ×2 (09:03→22:25)
--- NOTE | 2019-02-28 09:08 | PN ---
Progress Note (short form) - Note Progress Note: 58yo F s/p Open ventral hernia repair with mesh POD 1. Pt seen and examined at bedside. Pt states she is sore, but pain is controlled. Pt denies fever, chills, n/v. Pt tolerating liquid diet. Last Vital Signs Temp Pulse Resp BP Pulse Ox 98.2 F 70 20 128/84 99 02/28/19 06:00 02/28/19 07:53 02/28/19 06:00 02/28/19 06:00 02/28/19 07:53 CBC, BMP 02/28/19 07:30 02/28/19 07:30 PE: Gen: A&O X3 Resp: breathing comfortably ABd: soft, nondistended, moderate tenderness over incision, incision clean with no erythem or discharge. Drain output is serosanguinous Output: 90ml Problem List - Problems (1) Incarcerated ventral hernia Assessment/Plan: Plan -continue liquid diet, pt cleared for discharge from surgery standpoint, pt may go home with drain in place and have removed in the office. -pt requesting that her trach be changed back to the old one, contact ENT -Pt should follow up with Dr. Smith in the office in 1 week for reevaluation. Case discussed with Dr. Smith who agrees with plan Code(s): K43.6 - OTHER AND UNSP VENTRAL HERNIA WITH OBSTRUCTION, W/O GANGRENE
[2019-02-28] MEDS: PANTOPRAZOLE 40 MG TABLET (FP) PO SCH (09:11)
[2019-02-28] MEDS: LISINOPRIL 20 MG TABLET (FP) PO SCH (09:11)
[2019-02-28] MEDS ORDERED: MAGNESIUM SULF 50% (8.12 MEQ/2 ML-1 GM VIAL) IVPB ONE (09:19)
[2019-02-28] MEDS ORDERED: POTASSIUM CHLORIDE TABS 20 MEQ TABLET.ER (FP) PO ONE (09:19)
--- NOTE | 2019-02-28 09:48 | PN ---
Progress Note (short form) - Note Progress Note: Anesthesia Post Op Pt s/p GA for hernia repair Pt awake alert in bed, trach in situ (long standing) Pt deies n/v; puritis; urinary retention Reports ambulating well and good pain control VSS no apparent anesthesia complications Dave Dacosta.
[2019-02-28] MEDS ORDERED: PANTOPRAZOLE SODIUM 40 MG VIAL IVPUSH SCH ×2 (10:00)
[2019-02-28] MEDS ORDERED: LISINOPRIL 20 MG TABLET (FP) PO SCH (10:00)
[2019-02-28] MEDS: oxyCODONE HCL 5 MG TABLET PO PRN (11:08)
[2019-02-28] MEDS ORDERED: ACETAMINOPHEN 325 MG TABLET (FP) PO PRN (12:44)
[2019-02-28] MEDS ORDERED: IBUPROFEN 800 MG/8 ML IJ IVPB PRN (13:13)
[2019-02-28] MEDS ORDERED: IBUPROFEN 400 MG TABLET (FP) PO PRN (13:14)
[2019-02-28] MEDS: LACTATED RINGERS SOLUTION 1,000 ML IV SCH (13:38)
[2019-02-28] MEDS: ACETAMINOPHEN 500 MG TABLET (FP) PO PRN (14:54)
--- NOTE | 2019-02-28 21:09 | PN ---
Teaching Attending Note Name of Resident: Graciela Becerra ATTENDING PHYSICIAN STATEMENT I saw and evaluated the patient. I reviewed the resident's note and discussed the case with the resident. I agree with the resident's findings and plan as documented. SUBJECTIVE: Feels well post-op. Pain well controlled. No CP/Palps. No nausea/ vomiting. OBJECTIVE: Afebrile, Hemodynamicaly Stable. Last Vital Signs Temp Pulse Resp BP Pulse Ox 98.1 F 76 18 127/71 94 L 02/28/19 17:02 02/28/19 17:02 02/28/19 17:02 02/28/19 17:02 02/28/19 09:00 HEENT - s/p Trach to RA - receiving bronchodilator Neb during my interview. Heart - S1, S2, SM Lungs - good air entry bilaterally Abdomen - High BMI, Surgical wound dressed with abdominal binder in place. SUSAN drain in situ draining sero-sanguinous fluid Extremities - Edema +. No calf tenderness. Laboratory Results - last 24 hr 02/27/19 02/28/19 02/28/19 21:47 07:02 07:30 WBC 5.2 RBC 4.02 Hgb 11.0 Hct 33.7 MCV 83.7 MCH 27.4 MCHC 32.8 RDW 15.2 Plt Count 173 MPV 8.4 Absolute Neuts (auto) 4.0 Neutrophils % 75.9 Lymphocytes % 15.1 Monocytes % 6.2 Eosinophils % 2.6 Basophils % 0.2 Nucleated RBC % 0 Sodium Potassium Chloride Carbon Dioxide Anion Gap BUN Creatinine Est GFR (CKD-EPI)AfAm Est GFR (CKD-EPI)NonAf POC Glucometer 98 107 Random Glucose Calcium Phosphorus Magnesium Total Bilirubin AST ALT Alkaline Phosphatase Total Protein Albumin 02/28/19 02/28/19 02/28/19 07:30 12:53 19:35 WBC RBC Hgb Hct MCV MCH MCHC RDW Plt Count MPV Absolute Neuts (auto) Neutrophils % Lymphocytes % Monocytes % Eosinophils % Basophils % Nucleated RBC % Sodium 141 Potassium 3.3 L Chloride 102 Carbon Dioxide 32 Anion Gap 7 L BUN 11.8 Creatinine 0.9 Est GFR (CKD-EPI)AfAm 82.26 Est GFR (CKD-EPI)NonAf 70.98 POC Glucometer 89 124 Random Glucose 109 H Calcium 7.7 L Phosphorus 3.4 Magnesium 1.7 L Total Bilirubin 0.5 AST 31 ALT 25 Alkaline Phosphatase 69 Total Protein 6.0 L Albumin 2.7 L Current Medications Generic Name Dose Route Start Last Admin Trade Name Freq PRN Reason Stop Dose Admin Acetaminophen 1,000 mg 02/28/19 14:51 02/28/19 14:54 Tylenol - PO 1,000 mg Q6H PRN Administration PAIN LEVEL 1-3 Heparin Sodium (Porcine) 5,000 unit 02/27/19 14:00 02/28/19 14:55 Heparin - SQ 5,000 unit TID LAKESHA Administration Lactated Ringer's 1,000 mls @ 100 mls/hr 02/27/19 13:26 02/28/19 13:38 Lactated Ringers Solution IV Not Given [facility] Ibuprofen 800 mg 02/28/19 13:14 Motrin - PO Q8H PRN FEVER Insulin Aspart 1 vial 02/27/19 18:00 02/28/19 19:54 Novolog Vial Sliding Scale - SQ Not Given Q6HPO [facility] Protocol Levothyroxine Sodium 100 mcg/ 175 mcg 02/28/19 07:00 02/28/19 07:06 Levothyroxine Sodium 75 mcg PO 175 mcg DAILY@0700 [facility] Administration Lisinopril 40 mg 02/28/19 10:00 02/28/19 09:11 Prinivil PO 40 mg DAILY [facility] Administration Loperamide HCl 2 mg 02/27/19 13:26 Imodium - PO Q8H PRN DIARRHEA Morphine Sulfate 8 mg 02/27/19 12:38 Morphine Sulfate IVPB Q3H PRN PAIN LEVEL 7 - 10 Non-Formulary Medication 0.1 mg 02/27/19 22:00 Clonidine Hcl [Clonidine Hcl Er] PO BID [facility] Nystatin 1 applic 02/27/19 22:00 02/28/19 09:03 Mycostatin Ointment - TP Not Given BID [facility] Ondansetron HCl 4 mg 02/27/19 12:38 Zofran Injection IVPUSH Q6H PRN NAUSEA Oxycodone HCl 7.5 mg 02/27/19 12:38 02/28/19 11:08 Roxicodone - PO 7.5 mg Q4H PRN Administration PAIN LEVEL 4 - 6 Pantoprazole Sodium 40 mg 02/28/19 10:00 02/28/19 09:11 Protonix - PO 40 mg DAILY LAKESHA Administration Rosuvastatin Calcium 20 mg 02/27/19 22:00 02/27/19 22:16 Crestor - PO 20 mg HS LAKESHA Administration Home Medications Medication Instructions Recorded Clonidine HCl [Clonidine HCl ER] 0.1 mg PO BID 02/21/19 Lisinopril [Prinivil -] 40 mg PO DAILY 02/21/19 Metformin HCl [Metformin HCl ER] 500 mg PO BIDAC 02/21/19 Metoclopramide HCl [Reglan -] 10 mg PO TID 02/21/19 Rosuvastatin Calcium [Crestor] 20 mg PO HS 02/21/19 Levothyroxine Sodium [Synthroid] 175 mcg PO ACBK 02/22/19 ASSESSMENT AND PLAN: 58 year old male with history of HENRIQUE s/p Trach, HTN, DM 2, hypothyroidism, HLD, s/p hernia repair presented with abdominal abdominal pain and diarrhea x 3 days , found to have ventral hernia with transverse colon causing partial bowel obstruction. 1. Incarcerated Ventral hernia with partial bowel obstruction POD 1 s/p Open repair with mesh for complex incarcerated recurrent ventral hernia Diet advancement as per Surgery. Analgesia as per Sx. Discharge plan and follow up as per Sx. 2. MARY sec to dehydration/diarrhea - resolved with IV hydration. 3. Non-obstructing Nephrolithasis - for out-patient urology referral. 4. HENRIQUE s/p Trach s/p trach exchange by ENT. Currently comfortable on RA. Will contact ENT for Trach change as per patient request. 5. HTN - resume Clonidine, Lisinopril. 6. DM 2 - maintain on novolog sliding scale. Metformin held. 7. Hypothyroidism - continue Levothyroxine. 8. HLD - continue Crestor. 9. Electrolyte Abnormalities - Hypokalemia/Hypomagnesemia - repleted. DVT Px - Heparin SQ GI Px - PPI
[2019-02-28] MEDS: ROSUVASTATIN CA 20 MG TABLET (FP) PO SCH (22:26)
[2019-03-01] MEDS: INSULIN SLIDING SCALE (NOVOLOG) 1 VIAL SQ SCH ×5 (00:27→23:45)
[2019-03-01] MEDS ORDERED: LEVOTHYROXINE NA 75 MCG TABLET (FP) ONE (05:43)
[2019-03-01] MEDS ORDERED: LEVOTHYROXINE NA 100 MCG TABLET (FP) ONE (05:43)
[2019-03-01] MEDS: LEVOTHYROXINE 100 MCG, LEVOTHYROXINE 75 MCG PO SCH (06:00)
[2019-03-01] MEDS: HEPARIN NA (PORCINE) 5,000 UNITS/ML 1ML VIAL SQ SCH ×3 (06:06→21:48)
[2019-03-01 08:37] LABS: BASO % 0.4 % (0-2.0); EOS % 5.2 % (0-4.5); HEMATOCRIT 34.9 % (32.4-45.2); HEMOGLOBIN 11.3 GM/dL (10.7-15.3); LYMPH % 15.8 % (8-40); MCH 27.1 pg (25.7-33.7); MCHC 32.4 g/dl (32.0-36.0); MEAN CELL VOLUME 83.7 fl (80-96); MEAN PLT VOLUME 8.9 fl (7.5-11.1); MONO % 5.2 % (3.8-10.2); NEUT % 73.4 % (42.8-82.8); PLATELET COUNT 201 K/MM3 (134-434); RBC 4.17 M/mm3 (3.60-5.2); RDW 15.5 % (11.6-15.6); WHITE BLOOD COUNT 5.2 K/mm3 (4.0-10.0)
[2019-03-01 08:58] LABS: BILIRUBIN,TOTAL 0.4 mg/dL (0.2-1); BLOOD UREA NITROGEN 12.6 mg/dL (7-18); CALCIUM 8.4 mg/dL (8.5-10.1); CREATININE 0.9 mg/dL (0.55-1.3); MAGNESIUM 2.3 mg/dL (1.8-2.4); PHOSPHOROUS 2.2 mg/dL (2.5-4.9); POTASSIUM 3.4 mmol/L (3.5-5.1); TOT PROT 6.7 g/dl (6.4-8.2)
[2019-03-01] MEDS: oxyCODONE HCL 5 MG TABLET PO PRN ×2 (09:07→17:38)
[2019-03-01] MEDS: PANTOPRAZOLE 40 MG TABLET (FP) PO SCH (09:08)
[2019-03-01] MEDS: LISINOPRIL 20 MG TABLET (FP) PO SCH (09:08)
[2019-03-01] MEDS: NYSTATIN 100000 UNIT/GM TOPICAL OINTMENT 15 GM TUBE TP SCH ×2 (09:15→21:49)
[2019-03-01] MEDS ORDERED: POTASSIUM CHLORIDE ORAL LIQUID 20 MEQ/15 ML PO ONE (09:49)
[2019-03-01] MEDS ORDERED: POTASSIUM PHOSPHATE 15 MM in SODIUM CHLORIDE 250 ML IVPB ONE (11:00)
--- NOTE | 2019-03-01 11:49 | PATH ---
Surgical Pathology Report Patient Name: JENANE HUNT Med. Rec. #: [id number] /Age/Gender: 1960 (Age: 58) / F Account: [id number] Location: [facility] MED/SURG Taken: 02/27/2019 Received: 02/27/2019 Reported: 03/01/2019 Physicians: Timothy Smith M.D. Specimen(s) Received A: VENTRAL HERNIA SAC B: PORTION OF OMENTUM Clinical History Incarcerated, recurrent ventral hernia and large bowel obstruction Final Diagnosis A. VENTRAL HERNIA SAC, EXCISION: CONSISTENT WITH HERNIA SAC AND ATTACHED MATURE ADIPOSE TISSUE. B. PORTION OF OMENTUM, EXCISION: MATURE ADIPOSE TISSUE WITH VASCULAR CONGESTION, CONSISTENT WITH OMENTUM. ATTACHED FIBROUS TISSUE, MAY REPRESENT PORTION OF HERNIA SAC. Electronically Signed rFitz Thrasher M.D. Gross Description A. Received in formalin, labeled "ventral hernia sac" is an irregular portion of membranous and adipose tissue measuring 9 x 5 x 1cm. The specimen is sectioned and front office representative sections are submitted in one cassette. B. Received in formalin, labeled "portion of omentum" is an irregular portion of membranous and adipose tissue measuring 9 x 5 x 4cm. The specimen is sectioned and revealed yellow adipose tissue with focal hemorrhage. Fibrous tissue shows unremarkable cut surfaces. Cashier Wrapper sections are submitted in two cassettes. __ KWMireya/02/28/2019 eloina/02/28/2019
[2019-03-01] MEDS ORDERED: INSULIN (NOVOLOG) ASPART 100 UNITS/ML 10ML VIAL ONE (12:07)
--- NOTE | 2019-03-01 13:39 | PN ---
Physical Exam: SUBJECTIVE: Patient seen and examined. She reports 6/10 abdominal pain. No n/v/ d overnight. Tolerating soft diet well. She denies fever or chills. OBJECTIVE: Vital Signs Period Temp Pulse Resp BP Sys/Leggett Pulse Ox Last 24 Hr 97.8 F-98.4 F 70-79 18-20 102-127/61-87 93-94 GENERAL: The patient is awake, alert, and fully oriented, in no acute distress. HEAD: Normal with no signs of trauma. EYES: PERRL, extraocular movements intact, sclera anicteric, conjunctiva clear. No ptosis. ENT: Ears normal, nares patent, moist mucous membranes. NECK: Trachea midline, tracheostomy tube in place, limited range of motion, supple. LUNGS: Breath sounds equal, clear to auscultation bilaterally, no wheezes, no crackles, no accessory muscle use. HEART: Regular rate and rhythm, S1, S2 without murmur, rub or gallop. ABDOMEN: abdominal binder EXTREMITIES: 2+ pulses, warm, well-perfused, no edema. NEUROLOGICAL: Cranial nerves II through XII grossly intact. Normal speech, gait not observed. PSYCH: Normal mood, normal affect. SKIN: Warm, dry, normal turgor, no rashes or lesions noted Laboratory Results - last 24 hr 02/28/19 02/28/19 03/01/19 19:35 21:41 06:03 WBC RBC Hgb Hct MCV MCH MCHC RDW Plt Count MPV Absolute Neuts (auto) Neutrophils % Lymphocytes % Monocytes % Eosinophils % Basophils % Nucleated RBC % Sodium Potassium Chloride Carbon Dioxide Anion Gap BUN Creatinine Est GFR (CKD-EPI)AfAm Est GFR (CKD-EPI)NonAf POC Glucometer 124 147 108 Random Glucose Calcium Phosphorus Magnesium Total Bilirubin AST ALT Alkaline Phosphatase Total Protein Albumin 03/01/19 03/01/19 03/01/19 07:17 07:17 12:13 WBC 5.2 RBC 4.17 Hgb 11.3 Hct 34.9 MCV 83.7 MCH 27.1 MCHC 32.4 RDW 15.5 Plt Count 201 MPV 8.9 Absolute Neuts (auto) 3.8 Neutrophils % 73.4 Lymphocytes % 15.8 Monocytes % 5.2 Eosinophils % 5.2 H D Basophils % 0.4 Nucleated RBC % 0 Sodium 139 Potassium 3.4 L Chloride 102 Carbon Dioxide 32 Anion Gap 5 L BUN 12.6 Creatinine 0.9 Est GFR (CKD-EPI)AfAm 82.26 Est GFR (CKD-EPI)NonAf 70.98 POC Glucometer 107 Random Glucose 104 Calcium 8.4 L Phosphorus 2.2 L Magnesium 2.3 Total Bilirubin 0.4 AST 24 ALT 26 Alkaline Phosphatase 79 Total Protein 6.7 Albumin 3.0 L Active Medications Generic Name Dose Route Start Last Admin Trade Name Freq PRN Reason Stop Dose Admin Acetaminophen 1,000 mg 02/28/19 14:51 02/28/19 14:54 Tylenol - PO 1,000 mg Q6H PRN Administration PAIN LEVEL 1-3 Heparin Sodium (Porcine) 5,000 unit 02/27/19 14:00 03/01/19 06:06 Heparin - SQ 5,000 unit TID LAKESHA Administration Lactated Ringer's 1,000 mls @ 100 mls/hr 02/27/19 13:26 02/28/19 13:38 Lactated Ringers Solution IV Not Given [facility] Potassium Phosphate 15 mm/ 255 mls @ 42.5 mls/hr 03/01/19 11:00 03/01/19 11: 19 Sodium Chloride IVPB 03/01/19 16:59 42.5 mls/hr ONCE ONE Administration Ibuprofen 800 mg 02/28/19 13:14 Motrin - PO Q8H PRN FEVER Insulin Aspart 1 vial 02/27/19 18:00 03/01/19 12:14 Novolog Vial Sliding Scale - SQ Not Given Q6HPO [facility] Protocol Levothyroxine Sodium 100 mcg/ 175 mcg 02/28/19 07:00 03/01/19 06:00 Levothyroxine Sodium 75 mcg PO 175 mcg DAILY@0700 LAKESHA Administration Lisinopril 40 mg 02/28/19 10:00 03/01/19 09:08 Prinivil PO 40 mg DAILY LAKESHA Administration Loperamide HCl 2 mg 02/27/19 13:26 Imodium - PO Q8H PRN DIARRHEA Non-Formulary Medication 0.1 mg 02/27/19 22:00 Clonidine Hcl [Clonidine Hcl Er] PO BID LAKESHA Nystatin 1 applic 02/27/19 22:00 03/01/19 09:15 Mycostatin Ointment - TP Not Given BID [facility] Ondansetron HCl 4 mg 02/27/19 12:38 Zofran Injection IVPUSH Q6H PRN NAUSEA Oxycodone HCl 7.5 mg 02/27/19 12:38 03/01/19 09:07 Roxicodone - PO 7.5 mg Q4H PRN Administration PAIN LEVEL 4 - 6 Pantoprazole Sodium 40 mg 02/28/19 10:00 03/01/19 09:08 Protonix - PO 40 mg DAILY LAKESHA Administration Rosuvastatin Calcium 20 mg 02/27/19 22:00 02/28/19 22:26 Crestor - PO 20 mg HS LAKESHA Administration ASSESSMENT/PLAN: Ms. Elizabeth is a 58y/o female with HENRIQUE (s/p tracheostomy 7 years ago), HTN, HLD, DM, and ventral hernia. She presented to the ER with complaints of abdominal pain associated with vomiting and diarrhea for 3 days. Was admitted for suspected incarcerated hernia. #abdominal pain 2/2 incarcerated supraumbilical hernia s/p repair with mesh Hernia repair with mesh performed: POD 2 -CT showed supraumbilical ventral hernia containing transverse colon, causing partial bowel obstruction, with distended fluid filled loops of right colon, small bowel, and stomach, fat containing umbilical hernia also present. -repair not completed on 02/22 because of incompatibility of pt's trach and OR equipment. Hernia was reduced but returned that night. She had loose bowel movements for several days following. -ENT replaced trach prior to hernia repair and added NG tube which was removed -soft diet tolerated -continue LR 100mL/hr -resumed PO meds for HTN and hypothyroidism -tylenol 1g Q6H PRN pain -oxycodone 7.5mg Q4H PRN pain 4-6 -Morphine IV 8mg Q3H PRN pain 7-10 -Imodium 2mg Q8H PRN diarrhea -CBC, CMP -PT consulted but difficulty getting pt walking today. She had an increase in drainage from SUSAN and was unable to finish session. Surgery informed and will follow up. #HTN well-controlled -restart lisinopril 40mg -pt's home meds include clonidine ER which is not available in the hospital, requested to get pt's family to bring in, well-controlled even without -monitor #hypokalemia 3.4 -KCl 40meq PO -K Phosphate 15mm IV -repeat CMP #hypomagnesemia, resolved 2.3 -Mg lab #hypophosphatemia 2.2 -K Phosphate 15mm -repeat CMP #MARY, pre-renal, resolved Cr 0.9 -renal U/S- 6mm non-obstructing left renal stone. Possible 4cm right upper pole renal cyst. Recommend out pt not emergent contrast CT or MRI -LR 100ml/hr #hypothyroidism -home dose synthroid #nephrolithiasis -start Flomax after pt tolerates diet #HENRIQUE s/p trach 7 years ago -trach replaced by ENT prior to hernia repair -f/u out pt to switch out trach per pt wishes #DM A1C 7.6 -SSI -BGM #FEN NPO monitor lytes LR 100mL/hr #DVT Prophylaxis SCDs Visit type - Emergency Visit Emergency Visit: Yes ED Registration Date: 02/22/19 Care time: The patient presented to the Emergency Department on the above date and was hospitalized for further evaluation of their emergent condition. - New Patient This patient is new to me today: No - Critical Care Critical Care patient: No - Discharge Referral Referred to [facility] Med P.C.: No ATTENDING PHYSICIAN STATEMENT I saw and evaluated the patient. I reviewed the resident's note and discussed the case with the resident. I agree with the resident's findings and plan as documented. SUBJECTIVE: OBJECTIVE: ASSESSMENT AND PLAN:
[2019-03-01] MEDS: LACTATED RINGERS SOLUTION 1,000 ML IV SCH (15:17)
--- NOTE | 2019-03-01 16:45 | PN ---
Progress Note (short form) - Note Progress Note: Surgery 58yo F s/p Open ventral hernia repair with mesh POD#2 . Pt seen and examined at bedside. Pt states she is sore, but pain is controlled. Pt denies fever, chills, n/v. She is tolerating a liquid diet. Vital Signs Temp 98.1 F 03/01/19 14:00 Pulse 76 03/01/19 14:00 Resp 18 03/01/19 14:00 BP 126/79 03/01/19 14:00 Pulse Ox 94 L 03/01/19 09:25 Intake & Output 02/28/19 03/01/19 03/01/19 23:59 11:59 23:59 Intake Total 900 Output Total 60 Balance 840 Weight 256 lb Intake: IV 600 Lactated Ringers Solution 600 1,000 ml @ 100 mls/hr IV ASDIR LAKESHA Rx#: [id number] Oral 300 Output: Drainage 60 Left Abdomen 60 Other: Voiding Method Toilet Toilet # Unmeasured Voids Void 3 Bowel Movement No Height 5 ft 4 in Body Mass Index (BMI) 43.9 CBC, BMP 03/01/19 07:17 03/01/19 07:17 PE: Gen: A&O X3, NAD Resp: Unlabored resp on RA-trach ABd: Obese soft, nondistended, moderate tenderness over incision, incision clean with no erythem or discharge. SUSAN secure at LLQ with some d/c around drain - no evidence of superficial collection- reinforced. Drain output is serosanguinous Output: 90ml Problem List - Problems (1) Incarcerated ventral hernia Assessment/Plan: 58 yo POD #2 ventral hernia repair with mesh, doing well, tolerating clears. -continue liquid diet, pt cleared for discharge from surgery standpoint, pt may go home with drain in place and have removed in the office. -pt requesting that her trach be changed back to the old one, contact ENT -Pt should follow up with Dr. Smith in the office in 1 week for reevaluation. -d/c planning for rehab vs home. Evaluation and plan discussed with Dr Smith Code(s): K43.6 - OTHER AND UNSP VENTRAL HERNIA WITH OBSTRUCTION, W/O GANGRENE
--- NOTE | 2019-03-01 17:12 | PN ---
Teaching Attending Note Name of Resident: Graciela Becerra ATTENDING PHYSICIAN STATEMENT I saw and evaluated the patient. I reviewed the resident's note and discussed the case with the resident. I agree with the resident's findings and plan as documented. SUBJECTIVE: Feels well post-op. Pain well controlled. No CP/Palps. No nausea/ vomiting. Tolerating oral intake. OBJECTIVE: Afebrile, Hemodynamicaly Stable. Trach Collar - 98% on RA Last Vital Signs Temp Pulse Resp BP Pulse Ox 98.1 F 76 18 126/79 94 L 03/01/19 14:00 03/01/19 14:00 03/01/19 14:00 03/01/19 14:00 03/01/19 09:25 HEENT - s/p Trach to RA Heart - S1, S2, SM Lungs - good air entry bilaterally Abdomen - High BMI, Surgical wound dressed with abdominal binder in place. SUSAN drain in situ draining sero-sanguinous fluid Extremities - Edema +. No calf tenderness. Laboratory Results - last 24 hr 02/28/19 02/28/19 03/01/19 19:35 21:41 06:03 WBC RBC Hgb Hct MCV MCH MCHC RDW Plt Count MPV Absolute Neuts (auto) Neutrophils % Lymphocytes % Monocytes % Eosinophils % Basophils % Nucleated RBC % Sodium Potassium Chloride Carbon Dioxide Anion Gap BUN Creatinine Est GFR (CKD-EPI)AfAm Est GFR (CKD-EPI)NonAf POC Glucometer 124 147 108 Random Glucose Calcium Phosphorus Magnesium Total Bilirubin AST ALT Alkaline Phosphatase Total Protein Albumin 03/01/19 03/01/19 03/01/19 07:17 07:17 12:13 WBC 5.2 RBC 4.17 Hgb 11.3 Hct 34.9 MCV 83.7 MCH 27.1 MCHC 32.4 RDW 15.5 Plt Count 201 MPV 8.9 Absolute Neuts (auto) 3.8 Neutrophils % 73.4 Lymphocytes % 15.8 Monocytes % 5.2 Eosinophils % 5.2 H D Basophils % 0.4 Nucleated RBC % 0 Sodium 139 Potassium 3.4 L Chloride 102 Carbon Dioxide 32 Anion Gap 5 L BUN 12.6 Creatinine 0.9 Est GFR (CKD-EPI)AfAm 82.26 Est GFR (CKD-EPI)NonAf 70.98 POC Glucometer 107 Random Glucose 104 Calcium 8.4 L Phosphorus 2.2 L Magnesium 2.3 Total Bilirubin 0.4 AST 24 ALT 26 Alkaline Phosphatase 79 Total Protein 6.7 Albumin 3.0 L Current Medications Generic Name Dose Route Start Last Admin Trade Name Freq PRN Reason Stop Dose Admin Acetaminophen 1,000 mg 02/28/19 14:51 02/28/19 14:54 Tylenol - PO 1,000 mg Q6H PRN Administration PAIN LEVEL 1-3 Heparin Sodium (Porcine) 5,000 unit 02/27/19 14:00 03/01/19 15:16 Heparin - SQ 5,000 unit TID [facility] Administration Lactated Ringer's 1,000 mls @ 100 mls/hr 02/27/19 13:26 03/01/19 15:17 Lactated Ringers Solution IV Not Given ASDIR [facility] Ibuprofen 800 mg 02/28/19 13:14 Motrin - PO Q8H PRN FEVER Insulin Aspart 1 vial 02/27/19 18:00 03/01/19 12:14 Novolog Vial Sliding Scale - SQ Not Given Q6HPO [facility] Protocol Levothyroxine Sodium 100 mcg/ 175 mcg 02/28/19 07:00 03/01/19 06:00 Levothyroxine Sodium 75 mcg PO 175 mcg DAILY@0700 [facility] Administration Lisinopril 40 mg 02/28/19 10:00 03/01/19 09:08 Prinivil PO 40 mg DAILY [facility] Administration Loperamide HCl 2 mg 02/27/19 13:26 Imodium - PO Q8H PRN DI[facility] Non-Formulary Medication 0.1 mg 02/27/19 22:00 Clonidine Hcl [Clonidine Hcl Er] PO BID [facility] Nystatin 1 applic 02/27/19 22:00 03/01/19 09:15 Mycostatin Ointment - TP Not Given BID [facility] Ondansetron HCl 4 mg 02/27/19 12:38 Zofran Injection IVPUSH Q6H PRN [facility] Oxycodone HCl 7.5 mg 02/27/19 12:38 03/01/19 09:07 Roxicodone - PO 7.5 mg Q4H PRN Administration PAIN LEVEL 4 - 6 Pantoprazole Sodium 40 mg 02/28/19 10:00 03/01/19 09:08 Protonix - PO 40 mg DAILY [facility] Administration Rosuvastatin Calcium 20 mg 02/27/19 22:00 02/28/19 22:26 Crestor - PO 20 mg HS [facility] Administration Home Medications Medication Instructions Recorded Clonidine HCl [Clonidine HCl ER] 0.1 mg PO BID 02/21/19 Lisinopril [Prinivil -] 40 mg PO DAILY 02/21/19 Metformin HCl [Metformin HCl ER] 500 mg PO BIDAC 02/21/19 Metoclopramide HCl [Reglan -] 10 mg PO TID 02/21/19 Rosuvastatin Calcium [Crestor] 20 mg PO HS 02/21/19 Levothyroxine Sodium [Synthroid] 175 mcg PO ACBK 02/22/19 ASSESSMENT AND PLAN: 58 year old male with history of HENRIQUE s/p Trach, HTN, DM 2, hypothyroidism, HLD, s/p hernia repair presented with abdominal abdominal pain and diarrhea x 3 days , found to have ventral hernia with transverse colon causing partial bowel obstruction. 1. Incarcerated Ventral hernia with partial bowel obstruction POD 2 s/p Open repair with mesh for complex incarcerated recurrent ventral hernia Diet advancement as per Surgery. Analgesia as per Sx. Discharge plan and follow up as per Sx. 2. MARY sec to dehydration/diarrhea - resolved with IV hydration. 3. Non-obstructing Nephrolithasis - for out-patient urology referral. 4. HENRIQUE s/p Trach s/p trach exchange by ENT. Currently comfortable on RA. Contacted ENT Dr. Andrews for Trach change - recommends out-patient appt for Trach exchange. 5. HTN - resumed on Clonidine, Lisinopril. 6. DM 2 - maintain on Novolog sliding scale. Metformin held. 7. Hypothyroidism - continue Levothyroxine. 8. HLD - continue Crestor. 9. Electrolyte Abnormalities - Hypokalemia/Hypophosphatemia - repleted. DVT Px - Heparin SQ GI Px - PPI Dispo - PT, possible placement as per patient request.
[2019-03-01] MEDS: ROSUVASTATIN CA 20 MG TABLET (FP) PO SCH (21:48)
[2019-03-02] MEDS: INSULIN SLIDING SCALE (NOVOLOG) 1 VIAL SQ SCH ×3 (05:45→17:16)
[2019-03-02] MEDS: HEPARIN NA (PORCINE) 5,000 UNITS/ML 1ML VIAL SQ SCH ×2 (05:45→14:23)
[2019-03-02] MEDS ORDERED: LEVOTHYROXINE NA 75 MCG TABLET (FP) ONE (06:03)
[2019-03-02] MEDS ORDERED: LEVOTHYROXINE NA 100 MCG TABLET (FP) ONE (06:03)
[2019-03-02] MEDS: LEVOTHYROXINE 100 MCG, LEVOTHYROXINE 75 MCG PO SCH (06:08)
[2019-03-02 07:58] LABS: EOS % 4.8 % (0-4.5); HEMATOCRIT 35.3 % (32.4-45.2); HEMOGLOBIN 11.3 GM/dL (10.7-15.3); LYMPH % 20.3 % (8-40); MEAN CELL VOLUME 84.3 fl (80-96); MEAN PLT VOLUME 9.1 fl (7.5-11.1); MONO % 6.1 % (3.8-10.2); NEUT % 67.8 % (42.8-82.8); PLATELET COUNT 182 K/MM3 (134-434); RBC 4.18 M/mm3 (3.60-5.2); RDW 15.1 % (11.6-15.6); WHITE BLOOD COUNT 4.4 K/mm3 (4.0-10.0)
[2019-03-02 08:22] LABS: BILIRUBIN,TOTAL 0.5 mg/dL (0.2-1); BLOOD UREA NITROGEN 13.6 mg/dL (7-18); CALCIUM 8.3 mg/dL (8.5-10.1); MAGNESIUM 2.3 mg/dL (1.8-2.4); PHOSPHOROUS 2.7 mg/dL (2.5-4.9); POTASSIUM 3.8 mmol/L (3.5-5.1); TOT PROT 6.7 g/dl (6.4-8.2)
[2019-03-02] MEDS: NYSTATIN 100000 UNIT/GM TOPICAL OINTMENT 15 GM TUBE TP SCH (09:54)
[2019-03-02] MEDS: PANTOPRAZOLE 40 MG TABLET (FP) PO SCH (09:57)
[2019-03-02] MEDS: ACETAMINOPHEN 500 MG TABLET (FP) PO PRN (09:57)
[2019-03-02] MEDS: LISINOPRIL 20 MG TABLET (FP) PO SCH (09:57)
--- NOTE | 2019-03-02 17:39 | DS ---
Physical Exam: SUBJECTIVE: Patient seen and examined. She denies abdominal pain today. No nausea or vomiting. She had soft stools overnight but is unsure of color. She has been tolerating soft food diet. No fever or chills. Drainage from SUSAN decreased after yesterday's briefly acute increase. OBJECTIVE: Vital Signs Period Temp Pulse Resp BP Sys/Leggett Pulse Ox Last 24 Hr 97.6 F-98.3 F 63-83 18-20 116-123/62-72 93-95 PHYSICAL EXAM GENERAL: The patient is awake, alert, and fully oriented, in no acute distress. HEAD: Normal with no signs of trauma. EYES: PERRL, extraocular movements intact, sclera anicteric, conjunctiva clear. No ptosis. ENT: Ears normal, nares patent, moist mucous membranes. NECK: Trachea midline, tracheostomy tube in place, limited range of motion, supple. LUNGS: Breath sounds equal, bronchial sounds appreciated, no wheezes, no crackles, no accessory muscle use. HEART: Regular rate and rhythm, S1, S2 without murmur, rub or gallop. ABDOMEN: abdominal binder, SUSAN drain with serosangenous fluid EXTREMITIES: 2+ pulses, warm, well-perfused, no edema. NEUROLOGICAL: Cranial nerves II through XII grossly intact. Normal speech, gait not observed. PSYCH: Normal mood, normal affect. SKIN: Warm, dry, normal turgor, no rashes or lesions noted LABS Laboratory Results - last 24 hr 03/01/19 03/01/19 03/02/19 17:42 20:42 05:30 WBC 4.4 RBC 4.18 Hgb 11.3 Hct 35.3 MCV 84.3 MCH 27.0 MCHC 32.0 RDW 15.1 Plt Count 182 MPV 9.1 Absolute Neuts (auto) 3.0 Neutrophils % 67.8 Lymphocytes % 20.3 D Monocytes % 6.1 Eosinophils % 4.8 H Basophils % 1.0 Nucleated RBC % 0 Sodium Potassium Chloride Carbon Dioxide Anion Gap BUN Creatinine Est GFR (CKD-EPI)AfAm Est GFR (CKD-EPI)NonAf POC Glucometer 99 139 Random Glucose Calcium Phosphorus Magnesium Total Bilirubin AST ALT Alkaline Phosphatase Total Protein Albumin 03/02/19 03/02/19 03/02/19 05:30 05:44 11:42 WBC RBC Hgb Hct MCV MCH MCHC RDW Plt Count MPV Absolute Neuts (auto) Neutrophils % Lymphocytes % Monocytes % Eosinophils % Basophils % Nucleated RBC % Sodium 138 Potassium 3.8 Chloride 102 Carbon Dioxide 30 Anion Gap 6 L BUN 13.6 Creatinine 1.0 Est GFR (CKD-EPI)AfAm 72.42 Est GFR (CKD-EPI)NonAf 62.49 POC Glucometer 109 105 Random Glucose 112 H Calcium 8.3 L Phosphorus 2.7 Magnesium 2.3 Total Bilirubin 0.5 AST 26 ALT 25 Alkaline Phosphatase 87 Total Protein 6.7 Albumin 3.0 L 03/02/19 17:16 WBC RBC Hgb Hct MCV MCH MCHC RDW Plt Count MPV Absolute Neuts (auto) Neutrophils % Lymphocytes % Monocytes % Eosinophils % Basophils % Nucleated RBC % Sodium Potassium Chloride Carbon Dioxide Anion Gap BUN Creatinine Est GFR (CKD-EPI)AfAm Est GFR (CKD-EPI)NonAf POC Glucometer 133 Random Glucose Calcium Phosphorus Magnesium Total Bilirubin AST ALT Alkaline Phosphatase Total Protein Albumin HOSPITAL COURSE: Ms. Hutn is a 58y/o female with HENRIQUE (s/p tracheostomy 7 years ago), HTN, HLD, DM, and ventral hernia. She presented to the ER with complaints of abdominal pain associated with vomiting and diarrhea for [address] abdomen showed bowel obstruction and subraumbilical ventral hernia. Pt was taken to OR but her metal trach was not compatible with the hospital's anesthesia equipment, so anesthesia was unable to adequately ventilate her. The hernia was reduced while on the table, relieving the bowel obstruction. Trach was replaced by ENT and pt was able to undergo hernia repair with mesh placement. Pt was draining serosanginous fluid from SUSAN drain and day before discharge there was a sudden increase. It resolved spontaneously. Pt was discharged to SNF and instructed to follow up with surgery for drain removal and ENT for trach replacement back to metal one in which she is able to speak. Date of Admission:02/22/19 Date of Discharge: 03/02/19 Minutes to complete discharge: 35 Discharge Summary Reason For Visit: INTRACTABLE DIARRHEA Current Active Problems Incarcerated ventral hernia (Acute) Vomiting and diarrhea (Acute) Condition: Stable - Instructions Diet, Activity, Other Instructions: Hospital Visit: You were admitted to the hospital because you were having abdominal pain and were found to have a hernia and bowel obstruction. A surgery was done to relieve the obstruction and fix the hernia with mesh. You have been able to eat foods and have been given medications for pain control. You are cleared to be discharged to [facility]. Medications: You may resume your home medications as directed. Follow Up: Follow up with Dr. Smith on the or 07 of March. He will look at your incision and make sure your gastrointestinal system is working normally. Follow up with ENT physician Dr. Andrews to replace your tracheostomy back to your metal original tracheostomy. You have an appointment scheduled for TuesdayMarch 06 at 5PM. Address: [address] [place] [address]. [address], [place] [address]. Phone number: . Follow up with your primary care doctor within 1- [address] Smith Discharge Instructions: Dear JEANNE HUNT, Post Operative Instructions Physical activity Resume your normal everyday activity as tolerated no heavy lifting or exercise until seen by your surgeon. You may walk unlimited amounts of and climb stairs. You may resume driving the car when you feel safe and comfortable behind the wheel and are no longer taking narcotic pain medications. Wound care You may remove your dressing tomorrow and shower. Change the dressing over your drain daily, especially when saturated. When showering allow soap and water to run over the incision, pat dry well afterwards. You have glue over your jhon , allow it to come off on its own. You may notice it peeling, do not peel it as this can cause the incision to open. You will be going home with a drain. The nurse will show you and/or your family members how to empty the drain. It should be emptied at least twice daily (or more frequently if it is full). It is a good idea to write down the amounts and bring this to your appointment. Do not let the drain fill to the top as this will cause the fluid to back up into your abdomen and can lead to infection. Diet Continue a liquid diet until March 02. You may advance your diet slowly afterwards. If you begin to have any nausea or vomiting, return to a liquid diet and contact your surgeons office. Pain management You may take Tylenol or acetaminophen or Ibuprofen (for example, Motrin, Advil etc.) Any pain prescription medication ordered should be taken as prescribed for moderate to severe pain. Do not drive, drink alcohol or operate heavy machinery while taking narcotic pain medications. Call Dr. Smith for any of the following: Severe pain not relieved by medication Fever of 101 or higher Excessive bleeding or drainage on dressing Inability to urinate If you experience any chest pain or shortness of breath please seek emergency treatment immediately. Call the office for a post operative appointment on Tuesday or Tuesday of next week ( March 06 or ). [facility] Instructions: Patient has appointment with ENT physician Dr. Andrews to replace tracheostomy back to metal original. Appointment scheduled for TuesdayMarch 06 at 5PM. Address: [address] [place] [address] [address] [address]. Phone number: . Patient must schedule appointment with Dr. Smith for follow up and removal of drain. Please call the office for an appointment on Tuesday. Please ensure appropriate transportation and arrangements. Maintain oxygen saturation greater than 90% Referrals: Lalit Andrews MD [Staff Physician] - 03/06/19 5:00 pm (Replace tracheostomy) Timothy Smith MD [Staff Physician] - 03/07/19 Disposition: SNF FACILITY - Home Medications Comprehensive Discharge Medication List: Ambulatory Orders Clonidine HCl [Clonidine HCl ER] 0.1 mg PO BID 02/21/19 Lisinopril [Prinivil -] 40 mg PO DAILY 02/21/19 Metformin HCl [Metformin HCl ER] 500 mg PO BIDAC 02/21/19 Metoclopramide HCl [Reglan -] 10 mg PO TID 02/21/19 Rosuvastatin Calcium [Crestor] 20 mg PO HS 02/21/19 Levothyroxine Sodium [Synthroid] 175 mcg PO ACBK 02/22/19 Pantoprazole Sodium [Protonix -] 40 mg PO DAILY tablet.ec 03/02/19 oxyCODONE HCL [Roxicodone -] 5 mg PO Q6H PRN tablet MDD 20 03/02/19 This patient is new to me today: No Emergency Visit: Yes ED Registration Date: 02/22/19 Care time: The patient presented to the Emergency Department on the above date and was hospitalized for further evaluation of their emergent condition. Critical Care patient: No - Discharge Referral Referred to [facility] Med [facility].C[facility] No ATTENDING PHYSICIAN STATEMENT I saw and evaluated the patient. I reviewed the resident's note and discussed the case with the resident. I agree with the resident's findings and plan as documented. SUBJECTIVE: OBJECTIVE: ASSESSMENT AND PLAN:
--- NOTE | 2019-03-02 18:15 | PN ---
Teaching Attending Note Name of Resident: Graciela Becerra ATTENDING PHYSICIAN STATEMENT I saw and evaluated the patient. I reviewed the resident's note and discussed the case with the resident. I agree with the resident's findings and plan as documented. SUBJECTIVE: Feels well post-op. Pain well controlled. No CP/Palps. No nausea/ vomiting. Tolerating oral intake. OBJECTIVE: Afebrile, Hemodynamicaly Stable. Trach Collar - 98% on RA Last Vital Signs Temp Pulse Resp BP Pulse Ox 98.2 F 63 20 127/63 93 L 03/02/19 18:03 03/02/19 18:03 03/02/19 18:03 03/02/19 18:03 03/02/19 09:00 HEENT - s/p Trach to RA Heart - S1, S2, SM Lungs - good air entry bilaterally Abdomen - High BMI, Surgical wound dressed with abdominal binder in place. SUSAN drain in situ draining sero-sanguinous fluid Extremities - Edema +. No calf tenderness. Laboratory Results - last 24 hr 03/01/19 03/02/19 03/02/19 20:42 05:30 05:30 WBC 4.4 RBC 4.18 Hgb 11.3 Hct 35.3 MCV 84.3 MCH 27.0 MCHC 32.0 RDW 15.1 Plt Count 182 MPV 9.1 Absolute Neuts (auto) 3.0 Neutrophils % 67.8 Lymphocytes % 20.3 D Monocytes % 6.1 Eosinophils % 4.8 H Basophils % 1.0 Nucleated RBC % 0 Sodium 138 Potassium 3.8 Chloride 102 Carbon Dioxide 30 Anion Gap 6 L BUN 13.6 Creatinine 1.0 Est GFR (CKD-EPI)AfAm 72.42 Est GFR (CKD-EPI)NonAf 62.49 POC Glucometer 139 Random Glucose 112 H Calcium 8.3 L Phosphorus 2.7 Magnesium 2.3 Total Bilirubin 0.5 AST 26 ALT 25 Alkaline Phosphatase 87 Total Protein 6.7 Albumin 3.0 L 03/02/19 03/02/19 03/02/19 05:44 11:42 17:16 WBC RBC Hgb Hct MCV MCH MCHC RDW Plt Count MPV Absolute Neuts (auto) Neutrophils % Lymphocytes % Monocytes % Eosinophils % Basophils % Nucleated RBC % Sodium Potassium Chloride Carbon Dioxide Anion Gap BUN Creatinine Est GFR (CKD-EPI)AfAm Est GFR (CKD-EPI)NonAf POC Glucometer 109 105 133 Random Glucose Calcium Phosphorus Magnesium Total Bilirubin AST ALT Alkaline Phosphatase Total Protein Albumin Current Medications Generic Name Dose Route Start Last Admin Trade Name Freq PRN Reason Stop Dose Admin Acetaminophen 1,000 mg 02/28/19 14:51 03/02/19 09:57 Tylenol - PO 1,000 mg Q6H PRN Administration PAIN LEVEL 1-3 Heparin Sodium (Porcine) 5,000 unit 02/27/19 14:00 03/02/19 14:23 Heparin - SQ 5,000 unit TID [facility] Administration Lactated Ringer's 1,000 mls @ 100 mls/hr 02/27/19 13:26 03/01/19 15:17 Lactated Ringers Solution IV Not Given ASDIR [facility] Ibuprofen 800 mg 02/28/19 13:14 03/01/19 18:35 Motrin - PO 800 mg Q8H PRN Administration FEVER Insulin Aspart 1 vial 02/27/19 18:00 03/02/19 17:16 Novolog Vial Sliding Scale - SQ Not Given Q6HPO [facility] Protocol Levothyroxine Sodium 100 mcg/ 175 mcg 02/28/19 07:00 03/02/19 06:08 Levothyroxine Sodium 75 mcg PO 175 mcg DAILY@0700 [facility] Administration Lisinopril 40 mg 02/28/19 10:00 03/02/19 09:57 Prinivil PO 40 mg DAILY [facility] Administration Loperamide HCl 2 mg 02/27/19 13:26 Imodium - PO Q8H PRN DIARRHEA Non-Formulary Medication 0.1 mg 02/27/19 22:00 Clonidine Hcl [Clonidine Hcl Er] PO BID [facility] Nystatin 1 applic 02/27/19 22:00 03/02/19 09:54 Mycostatin Ointment - TP Not Given BID [facility] Ondansetron HCl 4 mg 02/27/19 12:38 Zofran Injection IVPUSH Q6H PRN NAUSE[facility] Pantoprazole Sodium 40 mg 02/28/19 10:00 03/02/19 09:57 Protonix - PO 40 mg DAILY [facility] Administration Rosuvastatin Calcium 20 mg 02/27/19 22:00 03/01/19 21:48 Crestor - PO 20 mg HS [facility] Administration Home Medications Medication Instructions Recorded Clonidine HCl [Clonidine HCl ER] 0.1 mg PO BID 02/21/19 Lisinopril [Prinivil -] 40 mg PO DAILY 02/21/19 Metformin HCl [Metformin HCl ER] 500 mg PO BIDAC 02/21/19 Metoclopramide HCl [Reglan -] 10 mg PO TID 02/21/19 Rosuvastatin Calcium [Crestor] 20 mg PO HS 02/21/19 Levothyroxine Sodium [Synthroid] 175 mcg PO ACBK 02/22/19 ASSESSMENT AND PLAN: 58 year old male with history of HENRIQUE s/p Trach, HTN, DM 2, hypothyroidism, HLD, s/p hernia repair presented with abdominal abdominal pain and diarrhea x 3 days , found to have ventral hernia with transverse colon causing partial bowel obstruction. 1. Incarcerated Ventral hernia with partial bowel obstruction POD 3 s/p Open repair with mesh for complex incarcerated recurrent ventral hernia Tolerating oral intake. Moved bowels. Analgesia as per Sx. Will discharge with SUSAN drain in place with surgery out-patient follow up as per Surgery instructions. Dispo to SNF/[facility]. 2. MARY sec to dehydration/diarrhea - resolved with IV hydration. 3. Non-obstructing Nephrolithasis - for out-patient urology referral. 4. HENRIQUE s/p Trach s/p trach exchange by ENT. Currently comfortable on RA. Contacted ENT Dr. Andrews for Trach change - recommends out-patient appt for Trach exchange. 5. HTN - resumed on Clonidine, Lisinopril. 6. DM 2 - maintain on Novolog sliding scale. Metformin held. 7. Hypothyroidism - continue Levothyroxine. 8. HLD - continue Crestor. 9. Electrolyte Abnormalities - Hypokalemia/Hypophosphatemia - repleted. DVT Px - Heparin SQ GI Px - PPI Dispo - SNF
[2019-03-02 19:58] VITALS: BP 118/81; PULSE 72; TEMP 97.7
== END 2019-03-02 21:44 | DRG 354 ==
LOC: JER 19:32 → JERBED 02-22 01:05 → J8W 02-22 09:45
PROVIDERS: ADMIT Internal Medicine
PROC: 0WQF0ZZ Repair Abdominal Wall, Open Approach (ICD-10-PCS; 2019-02-22)
PROC: 0JN80ZZ Release Abdomen Subcutaneous Tissue and Fascia, Open Approach (ICD-10-PCS; 2019-02-27)
PROC: 0WUF0JZ Supplement Abdominal Wall with Synthetic Substitute, Open Approach (ICD-10-PCS; principal; 2019-02-27 09:30)
PROC: 0DBU0ZZ Excision of Omentum, Open Approach (ICD-10-PCS; 2019-02-27 09:30)
DX: K43.6 Other and unspecified ventral hernia with obstruction, without gangrene (principal); K56.600 Partial intestinal obstruction, unspecified as to cause; I31.3 Pericardial effusion (noninflammatory); N17.9 Acute kidney failure, unspecified; N20.0 Calculus of kidney; I51.7 Cardiomegaly; Z93.0 Tracheostomy status; I10 Essential (primary) hypertension; E11.9 Type 2 diabetes mellitus without complications; E03.9 Hypothyroidism, unspecified; E86.0 Dehydration; E83.39 Other disorders of phosphorus metabolism; E78.5 Hyperlipidemia, unspecified; R19.7 Diarrhea, unspecified; E83.42 Hypomagnesemia
CPT/HCPCS: 36415; 71045-TC-FY; 74019-TC-FY; 74176-TC; 74177-TC; 76775-TC; 80048; 80053; 82962; 83036; 83605; 83690; 83735; 84100; 85025; 85027; 85610; 85730; 86850; 86900; 86901; 87324; 87449; 88302-TC; 88305-TC; 90732; 93005; 93010; 94640; 94760; 97116-GP; 97161-GP; 99283-25; G0009; J0131; J0735; J1100; J1644; Q0162

== ENCOUNTER 2021-09-03 13:08 | Emergency (ER) | payer OTHER, BC ==
[2021-09-03 13:32] VITALS: BP 105/73; PULSE 72; TEMP 97.9; BMI 40.3
[2021-09-03] MEDS ORDERED: SODIUM CHLORIDE 1,000 ML IV STA (14:05)
[2021-09-03] MEDS ORDERED: ACETAMINOPHEN 1000 MG/100 ML BAG IVPB ONE (14:05)
[2021-09-03] MEDS ORDERED: FAMOTIDINE 20 MG/50 ML IVPB 20 MG/50 ML MG IVPB ONE ×2 (14:06→14:15)
[2021-09-03] MEDS ORDERED: METOCLOPRAMIDE HCL INJECTION 10 MG/2 ML VIAL IM ONE (14:06)
[2021-09-03] MEDS ORDERED: ACETAMINOPHEN INJECTION 100 ML IVPB ONE (14:15)
[2021-09-03] MEDS ORDERED: METOCLOPRAMIDE HCL INJECTION 10 MG/2 ML VIAL ONE (14:15)
[2021-09-03 15:00] LABS: BASO % 0.9 % (0-2.0); EOS % 2.1 % (0-4.5); HEMATOCRIT 30.6 % (32.4-45.2); HEMOGLOBIN 10.1 GM/dL (10.7-15.3); LYMPH % 23.3 % (8-40); MCH 26.8 pg (25.7-33.7); MCHC 32.9 g/dl (32.0-36.0); MEAN CELL VOLUME 81.5 fl (80-96); MEAN PLT VOLUME 8.3 fl (7.5-11.1); MONO % 4.8 % (3.8-10.2); NEUT % 68.9 % (42.8-82.8); PLATELET COUNT 219 10^3/uL (134-434); RBC 3.75 M/mm3 (3.60-5.2); RDW 14.6 % (11.6-15.6); WHITE BLOOD COUNT 4.1 K/mm3 (4.0-10.0)
[2021-09-03 15:20] LABS: ALBUMIN 3.6 g/dl (3.4-5.0); BLOOD UREA NITROGEN 13.1 mg/dL (7-18); CALCIUM 9.6 mg/dL (8.5-10.1)
[2021-09-03 15:23] LABS: CREATININE 0.9 mg/dL (0.55-1.3)
[2021-09-03 15:25] LABS: BILIRUBIN,TOTAL 0.3 mg/dL (0.2-1); TOT PROT 7.5 g/dl (6.4-8.2)
[2021-09-03 16:39] LABS: EPI CELLS >36 /uL (0-25.1); HYALINE CASTS 4 /uL (0-3.1); PH,URINE 5.5 (5.0-8.0); URINE APPEARANCE TURBID; URINE BACTERIA 2252 /uL (0-1359); URINE BILIRUBIN NEGATIVE (NEGATIVE); URINE COLOR YELLOW; URINE GLUCOSE (UA) NEGATIVE (NEGATIVE); URINE KETONE TRACE (NEGATIVE); URINE LEUK ESTERASE 1+ (NEGATIVE); URINE NITRITE NEGATIVE (NEGATIVE); URINE PROTEIN TRACE (NEGATIVE); URINE RBC 11 /uL (0-23.9); URINE UROBILINOGEN 0.2 mg/dL (0.2-1.0); URINE WBC 167 /uL (0-25.8)
== END 2021-09-03 19:50 | disposition home or self-care (01) ==
LOC: JER 13:08
PROC: 3E033GC Introduction of Other Therapeutic Substance into Peripheral Vein, Percutaneous Approach (ICD-10-PCS; principal; 2021-09-03)
PROC: 3E023GC Introduction of Other Therapeutic Substance into Muscle, Percutaneous Approach (ICD-10-PCS; principal; 2021-09-03)
DX: K29.00 Acute gastritis without bleeding (principal); N39.0 Urinary tract infection, site not specified
CPT/HCPCS: 36415; 80053; 81003; 83690; 84484; 85025; 87086; 93005; 93010; 99284-25

== ENCOUNTER 2024-07-24 10:46 | Emergency (ER) | payer OTHER, BC ==
[2024-07-24 10:57] VITALS: BP 137/71; PULSE 74; RESP 16; TEMP 98.8; BMI 41.1
[2024-07-24 13:56] LABS: BASO % 0.4 % (0-2.0); EOS % 4.6 % (0-4.5); HEMATOCRIT 33.8 % (32.4-45.2); LYMPH % 25.8 % (8-40); MCH 26.3 pg (25.7-33.7); MCHC 32.5 g/dl (32.0-36.0); MEAN CELL VOLUME 81.1 fl (80-96); NEUT % 60.2 % (42.8-82.8); PLATELET COUNT 144 10^3/uL (134-434); RBC 4.17 M/mm3 (3.60-5.2); RDW 15.3 % (11.6-15.6); WHITE BLOOD COUNT 3.1 K/mm3 (4.0-10.0)
[2024-07-24 14:16] LABS: ALBUMIN 3.4 g/dl (3.4-5.0)
[2024-07-24 14:19] LABS: CREATININE 0.9 mg/dL (0.55-1.3)
[2024-07-24 14:20] LABS: BILIRUBIN,TOTAL 0.3 mg/dL (0.2-1)
[2024-07-24 14:21] LABS: TOT PROT 7.4 g/dl (6.4-8.2)
== END 2024-07-24 15:26 | disposition home or self-care (01) ==
LOC: JER 10:46
DX: U07.1 COVID-19 (principal); R05.9 Cough, unspecified; M79.10 Myalgia, unspecified site; Z93.0 Tracheostomy status
CPT/HCPCS: 0241U-QW; 36415; 71046-TC-FY; 80053; 85025; 99284-25